=== PATIENT | female | born 1945 | race Caucasian/White ===

== ENCOUNTER → 2017-01-12 | Outpatient (CLI) | payer OTHER ==
[~2017-01-12] MED LIST: ASPEC81 PO; LPT20 PO; LPT40 PO; MECL1TAB42 PO; OXYC1TAB3 PO; PLV75 PO; TRIA37.5 PO; WARF2TAB PO
--- NOTE | 2017-01-12 10:10 | DIAGNOSTIC IMAGING REPORT ---
RIGHT KNEE 3 VIEWS CLINICAL HISTORY: RIGHT KNEE PAIN Right pain COMPARISON: 01/14/2016 DISCUSSION: Post total right knee arthroplasty. Prosthetic appears be good position. Good contact between prosthetic and underlying bone. Degenerative change of all major joint compartments left knee. There is no evidence for soft tissue swelling. IMPRESSION: Unremarkable postoperative change right knee. Significant degenerative change all major joint compartments left knee. Electronically signed by: Alejo Fields M.D. 01/12/2017 10:09 AM Dictated Date/Time: 01/12/2017 10:08 AM
== END | disposition home or self-care (01) ==
LOC: C.RDSM 10:42
PROVIDERS: ATTEND Physical Medicine & Rehabilitation Sports Medicine
DX: Z09 Encounter for follow-up examination after completed treatment for conditions other than malignant neoplasm (principal)

== ENCOUNTER → 2017-02-27 | Outpatient (CLI) | payer OTHER ==
--- NOTE | 2017-02-27 14:58 | MAMMOGRAPHY REPORT ---
BILATERAL DIGITAL SCREENING MAMMOGRAM WITH CAD: 02/27/2017 CLINICAL HISTORY: Routine screening. Patient has no complaints. TECHNIQUE: Current study was also evaluated with a Computer Aided Detection (CAD) system. Bilatera l CC and MLO views were obtained. COMPARISON: Comparison is made to exams dated: 02/26/2016 mammogram, 02/22/2015 mammogram - [facility], 02/22/2015 mammogram, 02/12/2012 mammogram, 02/15/2013 mammogram, and 10/05/2009 ma mmogram. BREAST COMPOSITION: There are scattered areas of fibroglandular density in both breasts. FINDINGS: No suspicious masses, calcifications, or areas of architectural distortion are noted in e ither breast. There has been no significant interval change compared to prior exams. Small cluster of benign-appearing calcifications in the right 12:00 breast is not significantly changed. IMPRESSION: ACR BI-RADS CATEGORY 2: BENIGN There is no mammographic evidence of malignancy. A 1 year screening mammogram is recommended. The p atient will receive written notification of the results. Approximately 10% of breast cancers are not detected with mammography. A negative mammographic repor t should not delay biopsy if a clinically suggestive mass is present. Olamide Merrill M.D. /:02/27/2017 09:36:08 Power Builder Developer: Shalini GIVENS)(Chet), [facility] letter sent: Normal 1/2 BI-RADS Code: ACR BI-RADS Category 2: Benign
== END | disposition home or self-care (01) ==
LOC: C.MAMM 09:07
PROVIDERS: ATTEND Specialist
DX: Z12.31 Encounter for screening mammogram for malignant neoplasm of breast (principal)

== ENCOUNTER 2017-04-19 11:19 | Inpatient (IN) | payer OTHER ==
[~2017-04-19] VITALS: Ht 167.6 cm; Wt 78.6 kg
[~2017-04-19 11:19] MED LIST changes: -ASPEC81 PO; -LPT20 PO; -LPT40 PO; -MECL1TAB42 PO; -PLV75 PO; -TRIA37.5 PO
[2017-04-19] MEDS ORDERED: MECL1TAB42 PO (11:35)
[2017-04-19] MEDS ORDERED: TRIA37.5 PO (11:35)
[2017-04-19 12:25] LABS: BASO % 0.3 %; BASO ABS # 0.03 K/uL (0-0.2); COMPLETE YES; EOS % 0.8 %; HEMATOCRIT 45.7 % (37-47); IG% 0.2 %; LYMPH % 20.6 %; LYMPH ABS # 2.31 K/uL (1.2-3.4); MEAN CELL VOLUME 87.5 fL (80-100); MEAN CORPUSCULAR HEMOGLOBIN 30.1 pg (25-34); MEAN CORPUSCULAR HGB CONC 34.4 g/dl (32-36); MEAN PLATELET VOLUME 10.7 fL (7.4-10.4); MONO % 7.6 %; NEUT % 70.5 %; PLATELET COUNT 498 K/uL (130-400); RED BLOOD COUNT 5.22 M/uL (4.2-5.4); WHITE BLOOD COUNT 11.24 K/uL (4.8-10.8)
--- NOTE | 2017-04-19 12:25 | EMERGENCY ROOM VISIT NOTE ---
History Report prepared by Kodi: Albino Loyd Under the Supervision of: Dr. Sherita De Leon D.O. First contact with patient: 11:51 Chief Complaint: DIZZY Stated Complaint: 2 FALLS, NUMBNESS & TINGLING L SIDE,SLURRED SPEECH Nursing Triage Summary: triage note: Pt reports "i think i have had a couple mini strokes." pt reports "this morning my lips and my right arm and right leg went numb, they don't feel numb now." pt reports dizziness started three weeks ago and continues today. pt reports she has never been dx with mini strokes in the past. History of Present Illness The patient is a 72 year old female who presents to the Emergency Room with complaints of constant dizziness that began three weeks ago. At this time, she was experiencing this dizziness with vomiting. She went to an emergency room in [place], and they told her to go to an ENT doctor if the vertigo persisted. It did, so she went to one. They believed she has Mnire's disease and placed her onto a water pill. She is currently having occasional ringing in her ears. She also states that over the past three days, she has thought she had 3 episodes of mini strokes. She describes these episodes as lip, left arm, and left leg numbness. This lasted for about 30 minutes. She had weakness and diaphoresis at the time, and fell on occasion. She did not lose consciousness at that time as well. She denies any headache, vomiting, fevers, chills, upper respiratory symptoms, or pedal edema. She does not take Aspirin. She denies any past medical history. She does not have a family history of strokes. Source of History: patient Onset: 3 weeks Position: other (global) Symptom Intensity: mild Quality: other (Dizziness) Timing: constant Associated Symptoms: + nausea, No LOC, No fevers, No chills, No headache, No diaphoresis, No sorethroat, No cough, No vomiting, No weakness, No numbness Review of Systems See HPI for pertinent positives & negatives. A total of 10 systems reviewed and were otherwise negative. Past Medical & Surgical Medical Problems: (1) Dizzy spells (2) TIA (transient ischemic attack) Family History Patient reports no known family medical history. Social History Smoking Status: Never Smoker Smokeless Tobacco Use: No Drug Use: none Occupation Status: retired Current/Historical Medications Scheduled Meclizine Hcl (Meclizine Hcl), 25 MG PO Q8H Triamterene/Hctz (Dyazide 37.5MG/25MG), 1 TAB PO BID Allergies Coded Allergies: Tramadol (Verified Adverse Reaction, Severe, STOMACH SICKNESS, 04/19/17) Shrimp (Verified Adverse Reaction, Intermediate, stomach cramps, 04/19/17) Uncoded Allergies: cat gut suture (Allergy, Intermediate, red and painful, 09/08/13) Physical Exam Vital Signs Date Time Temp Pulse Resp B/P (MAP) Pulse Ox O2 Delivery O2 Flow Rate FiO2 04/19/17 15:10 91 20 136/75 94 04/19/17 14:57 136/75 97 04/19/17 14:31 147/66 04/19/17 14:01 129/69 04/19/17 14:00 106 13 98 04/19/17 13:31 127/67 04/19/17 13:01 123/77 04/19/17 13:00 72 134/60 96 Room Air 102 127/82 112 123/77 04/19/17 13:00 103 13 127/82 04/19/17 12:59 134/60 04/19/17 12:48 138/61 04/19/17 12:31 137/88 04/19/17 12:18 96 04/19/17 12:01 152/75 04/19/17 11:24 36.6 108 18 134/76 96 Room Air Physical Exam GENERAL: alert, well appearing, well nourished, no distress, non-toxic EYE EXAM: normal conjunctiva, PERRL and EOM's grossly intact OROPHARYNX: no exudate, no erythema, lips, buccal mucosa, and tongue normal and mucous membranes are moist NECK: supple, no nuchal rigidity, no adenopathy, non-tender LUNGS: Clear to auscultation. Normal chest wall mechanics HEART: no murmurs, S1 normal and S2 normal ABDOMEN: abdomen soft, non-tender, normo-active bowel sounds, no masses, no rebound or guarding. BACK: Back is symmetrical on inspection and there is no deformity, no midline tenderness, no CVA tenderness. SKIN: no rashes and no bruising UPPER EXTREMITIES: upper extremities are grossly normal. LOWER EXTREMITIES: No pitting edema. NEURO EXAM: Normal sensorium, cranial nerves II-XII grossly intact, normal speech, no gross weakness of arms, no gross weakness of legs. No drift. Finger to nose intact on right. Difficulty with finger to nose on left. Gross sensation intact. NIH stroke score 0 Medical Decision & Procedures ER Provider Diagnostic Interpretation: Radiology results have been interpreted by the radiologist and reviewed by me. HEAD CT NONCONTRAST CT DOSE: 537.48 mGy.cm HISTORY: Dizziness. Headache. TECHNIQUE: Multiaxial CT images of the head were performed without the use of intravenous contrast. Automated exposure control was utilized for this study. Comparison: None. Findings: The paranasal sinuses and mastoid air cells are clear. The calvarium and skull base are intact. There is no mass, hematoma, midline shift, acute infarct. White matter hypodensity is nonspecific but suggestive of microvascular ischemic change. The ventricles and sulci are within normal limits. Impression: No acute intracranial abnormality. Scattered periventricular white matter hypodensities likely represent microvascular ischemic change. Electronically signed by: King Michel M.D. 04/19/2017 12:57 PM Dictated Date/Time: 04/19/2017 12:47 PM Laboratory Results 04/19/17 11:45 Red Blood Count 5.22, Mean Corpuscular Volume 87.5, Mean Corpuscular Hemoglobin 30.1, Mean Corpuscular Hemoglobin Concent 34.4, Mean Platelet Volume 10.7, Neutrophils (%) (Auto) 70.5, Lymphocytes (%) (Auto) 20.6, Monocytes (%) (Auto) 7.6, Eosinophils (%) (Auto) 0.8, Basophils (%) (Auto) 0.3, Neutrophils # (Auto) 7.94, Lymphocytes # (Auto) 2.31, Monocytes # (Auto) 0.85, Eosinophils # (Auto) 0.09, Basophils # (Auto) 0.03 04/19/17 11:45 Test 04/19/17 11:45 04/19/17 13:05 White Blood Count 11.24 K/uL (4.8-10.8) Red Blood Count 5.22 M/uL (4.2-5.4) Hemoglobin 15.7 g/dL (12.0-16.0) Hematocrit 45.7 % (37-47) Mean Corpuscular Volume 87.5 fL (80-100) Mean Corpuscular Hemoglobin 30.1 pg (25-34) Mean Corpuscular Hemoglobin Concent 34.4 g/dl (32-36) Platelet Count 498 K/uL (130-400) Mean Platelet Volume 10.7 fL (7.4-10.4) Neutrophils (%) (Auto) 70.5 % Lymphocytes (%) (Auto) 20.6 % Monocytes (%) (Auto) 7.6 % Eosinophils (%) (Auto) 0.8 % Basophils (%) (Auto) 0.3 % Neutrophils # (Auto) 7.94 K/uL (1.4-6.5) Lymphocytes # (Auto) 2.31 K/uL (1.2-3.4) Monocytes # (Auto) 0.85 K/uL (0.11-0.59) Eosinophils # (Auto) 0.09 K/uL (0-0.5) Basophils # (Auto) 0.03 K/uL (0-0.2) RDW Standard Deviation 41.1 fL (36.4-46.3) RDW Coefficient of Variation 12.9 % (11.5-14.5) Immature Granulocyte % (Auto) 0.2 % Immature Granulocyte # (Auto) 0.02 K/uL (0.00-0.02) Anion Gap 11.0 mmol/L (3-11) Est Creatinine Clear Calc Drug Dose 73.4 ml/min Estimated GFR () 95.4 Estimated GFR (Non- 82.3 BUN/Creatinine Ratio 27.8 (10-20) Calcium Level 9.3 mg/dl (8.5-10.1) Magnesium Level 2.5 mg/dl (1.8-2.4) Total Bilirubin 0.7 mg/dl (0.2-1) Aspartate Amino Transf (AST/SGOT) 23 U/L (15-37) Alanine Aminotransferase (ALT/SGPT) 38 U/L (12-78) Alkaline Phosphatase 154 U/L (45-117) Troponin I < 0.015 ng/ml (0-0.045) Total Protein 8.7 gm/dl (6.4-8.2) Albumin 4.0 gm/dl (3.4-5.0) Globulin 4.7 gm/dl (2.5-4.0) Albumin/Globulin Ratio 0.9 (0.9-2) Thyroid Stimulating Hormone (TSH) 2.310 uIu/ml (0.300-4.500) Urine Color YELLOW Urine Appearance CLEAR (CLEAR) Urine pH 7.0 (4.5-7.5) Urine Specific Adah 1.010 (1.000-1.030) Urine Protein NEG (NEG) Urine Glucose (UA) NEG (NEG) Urine Ketones NEG (NEG) Urine Occult Blood NEG (NEG) Urine Nitrite NEG (NEG) Urine Bilirubin NEG (NEG) Urine Urobilinogen NEG (NEG) Urine Leukocyte Esterase NEG (NEG) Laboratory results per my review. Medications Administered Medications (Trade) Dose Ordered Sig/Patricia Route Start Time Stop Time Status Last Admin Dose Admin Aspirin (Ecotrin Tab) 325 mg NOW STAT PO 04/19/17 14:19 04/19/17 14:20 DC 04/19/17 15:06 325 MG ECG Indication: other (Dizziness) Rate (beats per minute): 97 Rhythm: sinus rhythm Findings: no acute ischemic change, no ectopy, other (Normal axis, normal intervals) ED Course 1151: The patient was evaluated in room C3. A complete history and physical exam was performed. 1400: I updated the patient at this time. She informed me that she has a heaviness in her head and would like to have the lights turned off. I updated her on her results and treatment plan. She is in agreement with further management as an inpatient. 1416: Upon reevaluation, the patient is resting. I discussed the findings and the treatment plan with the patient. She expresses agreement and understanding. I spoke with Dr. Lizbeth Lara of the [facility]. She will be evaluated for further management. 1438: I reassessed the patient at this time. She had another episode of numbness /tingling on her left side. When I arrived her symptoms had resolved. She is now at baseline. This lasted for about 5 minutes. Medical Decision Differential diagnosis includes etiologies such as benign positional vertigo, dehydration, hypovolemia, anemia, tumor, infection, hypoglycemia, electrolyte abnormalities, cardiac sources, intracerebral event, toxicologic, neurologic, as well as others were entertained. Medication Reconciliation: I attest that I have personally reviewed the patient' s current medication list. Blood pressure screening: Patient was found to have an elevated blood pressure and was referred to their primary doctor for recheck and further treatment. Unclear etiology of symptoms, patient low risk for stroke, however risk factors include patient's age and known high cholesterol is reported by her. Patient states her family doctor and never started her on any cluster medication because her "good cholesterol was very good". Patient with no other significant family history, no recent trauma or illness. Concern for possible TIA, but concern also for 3 weeks of persistent dizziness and atypical headaches. CT head negative here, however feel patient needs additional evaluation including likely additional neuro imaging. Patient with stable vital signs here, no evidence of occult infectious etiology, doubt cardiac etiology, no obvious abnormality noted on ENT exam at bedside. Doubt dissection. Patient admitted 5 discussion with the hospitalist for additional evaluation and treatment. They agreed with administration of aspirin given consideration of TIA/CVA, and they will order MRI/MRA at this time and place additional orders. Consults Time Called: 1400 Consulting Physician[facility] Returned Call: [phone] They will be evaluating the patient for further management and care. Impression Primary Impression: Dizziness Additional Impressions: Paresthesias Headache Scribe Attestation The scribe's documentation has been prepared under my direction and personally reviewed by me in its entirety. I confirm that the note above accurately reflects all work, treatment, procedures, and medical decision making performed by me. Departure Information Dispostion Being Evaluated By Hospitalist Referrals Koki Alejandra M.D. (PCP) Patient Instructions My [facility] Stroke History Time Last Known Well Is well currently, but presented symptoms once a day for the last two days. Stroke t-PA Criteria Reviewed Does NOT meet criteria for t-PA Reason t-PA Not Given Treatment not indicated Strict Exclusion Criteria Normal neurologic examination Problem Qualifiers Additional Impressions: Headache Headache type: unspecified Headache chronicity pattern: episodic headache Intractability: not intractable Qualified Codes: R51 - Headache
[2017-04-19 12:35] LABS: ALT/SGPT 38 U/L (12-78); AST/SGOT 23 U/L (15-37); BLOOD UREA NITROGEN 20 mg/dl (7-18); BUN/CREATININE RATIO 27.8 (10-20); CALCIUM 9.3 mg/dl (8.5-10.1); CARBON DIOXIDE 23 mmol/L (21-32); CHLORIDE 103 mmol/L (98-107); CREATININE 0.73 mg/dl (0.60-1.20); GLUCOSE 98 mg/dl (70-99); MAGNESIUM 2.5 mg/dl (1.8-2.4); POTASSIUM 4.1 mmol/L (3.5-5.1); SODIUM 137 mmol/L (136-145)
[2017-04-19 12:46] LABS: ALB/GLOB RATIO 0.9 (0.9-2); ALKALINE PHOSPHATASE 154 U/L (45-117)
--- NOTE | 2017-04-19 12:59 | DIAGNOSTIC IMAGING REPORT ---
HEAD CT NONCONTRAST CT DOSE: 537.48 mGy.cm HISTORY: Dizziness. Headache. TECHNIQUE: Multiaxial CT images of the head were performed without the use of intravenous contrast. Automated exposure control was utilized for this study. Comparison: None. Findings: The paranasal sinuses and mastoid air cells are clear. The calvarium and skull base are intact. There is no mass, hematoma, midline shift, acute infarct. White matter hypodensity is nonspecific but suggestive of microvascular ischemic change. The ventricles and sulci are within normal limits. Impression: No acute intracranial abnormality. Scattered periventricular white matter hypodensities likely represent microvascular ischemic change. Electronically signed by: King Michel M.D. 04/19/2017 12:57 PM Dictated Date/Time: 04/19/2017 12:47 PM
[2017-04-19 13:20] LABS: URINE APPEARANCE CLEAR (CLEAR); URINE BILIRUBIN NEG (NEG); URINE COLOR YELLOW; URINE NITRITE NEG (NEG); UROBILINOGEN NEG (NEG); ZZUR CULT IF INDIC CLEAN CATCH NO
[2017-04-19 13:27] LABS: MANUAL MICROSCOPIC REQUIRED? NO; REVIEW REQ? NO
[2017-04-19] MEDS ORDERED: ASPIRIN 325 MG ECTAB PO STA (14:19)
[2017-04-19] MEDS ORDERED: ONDANSETRON INJ 2 MG/ML 2 ML VIAL IV PRN (14:30)
[2017-04-19] MEDS ORDERED: ACETAMINOPHEN 325 MG TAB PO PRN (14:30)
[2017-04-19] MEDS ORDERED: ZOLPIDEM TARTRATE 5 MG TAB PO PRN (14:30)
[2017-04-19] MEDS ORDERED: ALUMINUM/MAGNESIUM/SIMETH (MAALOX MAX) 30 ML UDC PO PRN (14:30)
[2017-04-19] MEDS ORDERED: MAGNESIUM HYDROXIDE SUSP 30 ML UDC PO PRN (14:30)
[2017-04-19] MEDS ORDERED: MECLIZINE HCL 25 MG TAB PO SCH (14:30)
[2017-04-19] MEDS ORDERED: POLYETHYLENE (MIRALAX) 17 GM PACK PO PRN (14:30)
[2017-04-19] MEDS ORDERED: PHARMACIST DISCHARGE MED REC CONSULT PRN (14:30)
[2017-04-19] MEDS ORDERED: SODIUM CHLORIDE 0.9% 1000ML 1,000 ML IV SCH (14:30)
[2017-04-19] MEDS ORDERED: SODIUM CHLORIDE 0.9% 1000ML 1,000 ML IV STA (14:43)
[2017-04-19] MEDS ORDERED: IV FLUIDS COMPLETED PRN (14:45)
[2017-04-19] MEDS ORDERED: GADAVIST IV PRN (15:30)
--- NOTE | 2017-04-19 16:01 | DIAGNOSTIC IMAGING REPORT ---
Brain MRA HISTORY: Left-sided numbness and tingling. Stroke - Attention to [place] [facility] [place] TECHNIQUE: 3-D [id number] MRA of the brain was performed without contrast. COMPARISON STUDY: None. FINDINGS: Hypoplastic distal right vertebral artery. However, the distal vertebral arteries appear patent. There is a 5 mm segment of moderate to severe narrowing within the mid basilar artery. The bilateral intracranial internal carotid arteries are widely patent. The bilateral ACAs, MCAs, furnace attendant show no significant stenosis, occlusion, or aneurysm. Of note, the distal bilateral furnace attendant are suboptimally evaluated due to the motion artifact. IMPRESSION: 1. A 5 mm segment of moderate to severe narrowing within the mid basilar artery. 2. No significant stenosis, occlusion, or aneurysm seen within the bilateral ACAs, MCAs, ACAs. Electronically signed by: King Michel M.D. 04/19/2017 3:59 PM Dictated Date/Time: 04/19/2017 3:55 PM
--- NOTE | 2017-04-19 16:15 | DIAGNOSTIC IMAGING REPORT ---
NECK MRA HISTORY: Left-sided numbness. Stroke TECHNIQUE: Ibfr-ib-bfddag and gadolinium-enhanced MRA of the neck was performed both before and after the intravenous administration of contrast. All measurements were calculated based on NASCET criteria. COMPARISON STUDY: None. FINDINGS: The aortic arch and proximal great vessels are widely patent. There is no significant stenosis, occlusion, or dissection identified within the bilateral common carotid, internal carotid, or vertebral arteries. Hypoplastic right vertebral artery. IMPRESSION: No significant stenosis, occlusion, or dissection identified within the carotid or vertebral arteries. Electronically signed by: King Michel M.D. 04/19/2017 4:14 PM Dictated Date/Time: 04/19/2017 4:11 PM
--- NOTE | 2017-04-19 16:25 | DIAGNOSTIC IMAGING REPORT ---
Brain MRI WITH AND WITHOUT CONTRAST HISTORY: Left-sided tingling. Stroke TECHNIQUE: Multiplanar multisequence MRI of the brain was performed both before and after the intravenous administration of contrast. COMPARISON STUDY: Head CT 04/19/2017. FINDINGS: No areas restricted diffusion to suggest acute infarction. The midline structures are intact. The midline structures are intact. The paranasal sinuses and mastoid cells are clear. There are few tiny punctate lacunar infarcts seen within the right brainstem. The ventricles are normal in size. No hematoma or midline shift. Within the left occipital lobe best seen on coronal sequences image 22 there is a 2 cm peripheral wedge-shaped area of T2 hyperintensity. This demonstrates associated enhancement and an area of encephalomalacia. These findings favor a subacute infarct. Multiple scattered foci of T2 hyperintensity seen within the periventricular and subcortical white matter of the supratentorial brain. These are nonspecific but favor moderate microvascular ischemic change. Best seen on coronal T1 postcontrast image 14 there is a 7 mm focal blush of contrast within the mid billie. IMPRESSION: 1. Peripheral 2 cm area of increased T2 signal within the left occipital lobe. This demonstrates patchy enhancement and an area of encephalomalacia. Therefore, this most likely represents a subacute infarct. Follow-up brain MRI in one month is recommended to ensure resolution of these findings. 2. No acute infarct identified. 3. A 7 mm blush of contrast enhancement within the mid billie favors a capillary telangectasia. This can also be reassessed on follow-up examination. Electronically signed by: King Michel M.D. 04/19/2017 4:23 PM Dictated Date/Time: 04/19/2017 4:14 PM
--- NOTE | 2017-04-19 16:36 | DIAGNOSTIC IMAGING REPORT ---
BILATERAL CAROTID DOPPLER STUDY HISTORY: Left-sided tingling. Stroke COMPARISON: Neck MRA 04/19/2017. TECHNIQUE: Real-time, grayscale, and color Doppler sonography of the carotid arteries was performed. Imaging reviewed in the transverse and longitudinal planes. All measurements were calculated based on NASCET criteria. FINDINGS: Antegrade flow is seen in the bilateral vertebral arteries. The brachial pressures are hemodynamically similar. The peak systolic velocity within the right ICA is 93 cm/s. The right systolic ratio is 1.2. The peak systolic velocity within the left ICA is 71 cm/s. The left systolic ratio is 0.8. IMPRESSION: No hemodynamically significant stenosis seen within the carotid arteries. Electronically signed by: King Michel M.D. 04/19/2017 4:34 PM Dictated Date/Time: 04/19/2017 4:34 PM
[2017-04-19 17:04] VITALS: BP 152/62; PULSE 90; TEMP 36.6; O2SAT 96; Ht 167.6 cm; Wt 78.6 kg
[2017-04-19 17:13] LABS: PARTIAL THROMBOPLASTIN RATIO 1.1; PROTHROMBIN TIME (PATIENT) 10.4 SECONDS (9.0-12.0)
--- NOTE | 2017-04-19 17:20 | History and Physical ---
History & Physical Date & Time of Service: Apr 19, 2017 at 17:20 Chief Complaint: Dizzy Spells, Tia (Transient Ischemic Attack) Primary Care Physician: Lauren Beal D.O. History of Present Illness Source: patient This is a 72 yo F -healthy at baseline- was not on any medications Her past medical hx includes -hx of Uterine Ca s/p Hysterectomy in 2005 , hx of Migraine , DJD of cervical spine Pt noticed feeling Dizzy spell with any movement of her head has persisted nausea and vomiting with her symptoms was seen at [facility] ED , CT head was unraveling, pt was discharged with Meclizine PRN and asked to see an ENT doctor if her symptoms persists She saw ENT specialist -was thought to have Mnire's disease -was prescribes HCTZ pt did not had any improvement of Dizzy spell for the last 2-3 days started to experience intermittent numbness on left arm , leg and around her mouth no headache , no visual symptoms came to ED to evaluation In the ED her vitals showed orthostatic change Supine 134/60; sitting 127/83 / standing 123/77 CT head was unremarkable MRI of brain : 1. Peripheral 2 cm area of increased T2 signal within the left occipital lobe. This demonstrates patchy enhancement and an area of encephalomalacia. pt will be admitted to Telemetry or further stroke work up Family History Patient reports no known family medical history. Social History Smoking Status: Never Smoker Smokeless Tobacco Use: No Drug Use: none Occupational Status: retired Immunizations History of Influenza Vaccine: Yes Influenza Vaccine Date: Aug 22, 2013 History of Tetanus Vaccine?: Unknown Tetanus Immunization Date: Sep 08, 2013 History of Pneumococcal: Yes Pneumococcal Date: Sep 11, 2011 History of Hepatitis B Vaccine: Unknown Allergies Coded Allergies: Tramadol (Verified Adverse Reaction, Severe, STOMACH SICKNESS, 04/19/17) Shrimp (Verified Adverse Reaction, Intermediate, stomach cramps, 04/19/17) Uncoded Allergies: cat gut suture (Allergy, Intermediate, red and painful, 09/08/13) Home Medications Scheduled Meclizine Hcl (Meclizine Hcl), 25 MG PO Q8H Triamterene/Hctz (Dyazide 37.5MG/25MG), 1 TAB PO BID Review of Systems Constitutional: + weakness, + fatigue ENT: + hearing loss, + tinnitus Respiratory: No cough, No sputum, No wheezing, No shortness of breath, No dyspnea on exertion, No dyspnea at rest, No hemoptysis, No problem reported Cardiovascular: No chest pain, No orthopnea, No PND, No edema, No claudication , No palpitations, No problem reported Abdomen: + nausea, + vomiting Genitourinary - Female: No dysuria, No urinary frequency, No urinary urgency, No urinary incontinence, No urinary retention, No hematuria, No dysmenorrhea, No menorrhagia, No metrorrhagia, No rash, No vaginal bleeding, No vaginal discharge, No vaginal itching, No vulvodynia, No , No problem reported Neurologic: + weakness, + numbness/tingling, + vertigo Physical Exam Vital Signs Date Time Temp Pulse Resp B/P (MAP) Pulse Ox O2 Delivery O2 Flow Rate FiO2 04/19/17 17:04 36.6 90 18 152/62 96 Room Air 04/19/17 15:10 91 20 136/75 94 04/19/17 14:57 136/75 97 04/19/17 14:31 147/66 04/19/17 14:01 129/69 04/19/17 14:00 106 13 98 04/19/17 13:31 127/67 04/19/17 13:01 123/77 04/19/17 13:00 72 134/60 96 Room Air 102 127/82 112 123/77 04/19/17 13:00 103 13 127/82 04/19/17 12:59 134/60 04/19/17 12:48 138/61 04/19/17 12:31 137/88 04/19/17 12:18 96 04/19/17 12:01 152/75 04/19/17 11:24 36.6 108 18 134/76 96 Room Air General Appearance: no apparent distress (appears younger than stated age ) Head: normocephalic, atraumatic Eyes: normal inspection, PERRL, EOMI, sclerae normal ENT: normal ENT inspection Neck: no JVD, no carotid bruits Respiratory/Chest: chest non-tender, lungs clear, no respiratory distress Cardiovascular: regular rate, rhythm, no edema, + tachycardia Abdomen/GI: normal bowel sounds, non tender, soft Back: no CVA tenderness Extremities/Musculoskelatal: normal inspection, no calf tenderness, no pedal edema Neurologic/Psych: no motor/sensory deficits, alert, oriented x 3 Diagnostics Laboratory Results Results Past 24 Hours Test 04/19/17 11:45 04/19/17 13:05 Range/Units White Blood Count 11.24 4.8-10.8 K/uL Red Blood Count 5.22 4.2-5.4 M/uL Hemoglobin 15.7 12.0-16.0 g/dL Hematocrit 45.7 37-47 % Mean Corpuscular Volume 87.5 80-100 fL Mean Corpuscular Hemoglobin 30.1 25-34 pg Mean Corpuscular Hemoglobin Concent 34.4 32-36 g/dl Platelet Count 498 130-400 K/uL Mean Platelet Volume 10.7 7.4-10.4 fL Neutrophils (%) (Auto) 70.5 % Lymphocytes (%) (Auto) 20.6 % Monocytes (%) (Auto) 7.6 % Eosinophils (%) (Auto) 0.8 % Basophils (%) (Auto) 0.3 % Neutrophils # (Auto) 7.94 1.4-6.5 K/uL Lymphocytes # (Auto) 2.31 1.2-3.4 K/uL Monocytes # (Auto) 0.85 0.11-0.59 K/uL Eosinophils # (Auto) 0.09 0-0.5 K/uL Basophils # (Auto) 0.03 0-0.2 K/uL RDW Standard Deviation 41.1 36.4-46.3 fL RDW Coefficient of Variation 12.9 11.5-14.5 % Immature Granulocyte % (Auto) 0.2 % Immature Granulocyte # (Auto) 0.02 0.00-0.02 K/uL Prothrombin Time 10.4 9.0-12.0 SECONDS Prothromb Time International Ratio 1.0 0.9-1.1 Activated Partial Thromboplast Time 29.2 21.0-31.0 SECONDS Partial Thromboplastin Ratio 1.1 Sodium Level 137 136-145 mmol/L Potassium Level 4.1 3.5-5.1 mmol/L Chloride Level 103 98-107 mmol/L Carbon Dioxide Level 23 21-32 mmol/L Anion Gap 11.0 3-11 mmol/L Blood Urea Nitrogen 20 7-18 mg/dl Creatinine 0.73 0.60-1.20 mg/dl Est Creatinine Clear Calc Drug Dose 73.4 ml/min Estimated GFR () 95.4 Estimated GFR (Non- 82.3 BUN/Creatinine Ratio 27.8 10-20 Random Glucose 98 70-99 mg/dl Calcium Level 9.3 8.5-10.1 mg/dl Magnesium Level 2.5 1.8-2.4 mg/dl Total Bilirubin 0.7 0.2-1 mg/dl Aspartate Amino Transf (AST/SGOT) 23 15-37 U/L Alanine Aminotransferase (ALT/SGPT) 38 12-78 U/L Alkaline Phosphatase 154 45-117 U/L Troponin I < 0.015 0-0.045 ng/ml Total Protein 8.7 6.4-8.2 gm/dl Albumin 4.0 3.4-5.0 gm/dl Globulin 4.7 2.5-4.0 gm/dl Albumin/Globulin Ratio 0.9 0.9-2 Thyroid Stimulating Hormone (TSH) 2.310 0.300-4.500 uIu/ml Urine Color YELLOW Urine Appearance CLEAR CLEAR Urine pH 7.0 4.5-7.5 Urine Specific Tavernier 1.010 1.000-1.030 Urine Protein NEG NEG Urine Glucose (UA) NEG NEG Urine Ketones NEG NEG Urine Occult Blood NEG NEG Urine Nitrite NEG NEG Urine Bilirubin NEG NEG Urine Urobilinogen NEG NEG Urine Leukocyte Esterase NEG NEG Diagnostic Radiology MRI BRAIN : IMPRESSION: 1. Peripheral 2 cm area of increased T2 signal within the left occipital lobe. This demonstrates patchy enhancement and an area of encephalomalacia. Therefore, this most likely represents a subacute infarct. Follow-up brain MRI in one month is recommended to ensure resolution of these findings. 2. No acute infarct identified. 3. A 7 mm blush of contrast enhancement within the mid billie favors a capillary telangiectasia. This can also be reassessed on follow-up examination. MRA BRAIN : 1. A 5 mm segment of moderate to severe narrowing within the mid basilar artery. 2. No significant stenosis, occlusion, or aneurysm seen within the bilateral ACAs, MCAs, ACAs. NECK MRA: IMPRESSION: No significant stenosis, occlusion, or dissection identified within the carotid or vertebral arteries CT HEAD : Impression: No acute intracranial abnormality. Scattered periventricular white matter hypodensities likely represent microvascular ischemic change. CAROTID USG : IMPRESSION: No hemodynamically significant stenosis seen within the carotid arteries. Impression Assessment and Plan ACUTE /SUBACUTE CVA : presented with 2-3 days of intermittent numbness on left side MRI scan shows possible acute /sub acute CVA on left occipital area pt given Aspirin in ED will add Plavix started on Lipitor fasting lipid panel . Hb A1 c ordered for risk stratification allow permissive HTN carotid Doppler shows now stenosis monitor in tele to asses cardiac arrhythmia; ECHO eval hypercoagulable work up added to am labs Neurology eval requested DIZZY SPELL : not sure it is related to Acute CVA vs peripheral dizzy spell due to inner ear PT ordered for Tamara D/C Meclizine as it making pt drowsy without any reducing symptom Neuro eval requested HYPOTENSION /TACHYCARDIA : possible due to Vol depletion pt recently started on on HCTZ for possible Menieres disease ordered for IVF monitor FULL CODE DVT PROPHYLAXIS : sub q heparin DISPOSITION: Independent in her ADL's expected to be discharged home when medically stable Medicine follow up with Dr Beal Level of Care Telemetry Advanced Directives Existing Living Will: No Existing Power of Stock Pitcher: No Resuscitation Status FULL RESUSCITATION VTE Prophylaxis VTE Risk Assessment Done? Y/N: Yes Risk Level: Low Given or contraindicated: Unfractionated heparin SQ Additional Copies To Lauren Beal D.O. Mateer, John, M.D. (MEDICINE)
[2017-04-19] MEDS ORDERED: CLOPIDOGREL BISULFATE 75 MG TAB PO ONE (18:00)
[2017-04-19] MEDS ORDERED: LORAZEPAM 0.5 MG TAB PO PRN (18:30)
[2017-04-19 19:59] VITALS: BP 129/74; PULSE 86; TEMP 37; O2SAT 94
[2017-04-19 20:00] VITALS: O2SAT 94
[2017-04-19] MEDS ORDERED: TRIAMTERENE/HCTZ 37.5/25MG CAP PO SCH (21:00)
[2017-04-19] MEDS: ATORVASTATIN 20 MG TAB PO SCH (21:09)
[2017-04-19] MEDS: HEPARIN SOD 5000 UNIT/0.5 ML CARP SQ SCH (21:56)
[2017-04-20] VITALS (12 sets, daily range): BP systolic 116–150; BP diastolic 53–79; PULSE 76–97; TEMP 36.6–37.3; O2SAT 94–96
[2017-04-20] MEDS: IV FLUIDS COMPLETED PRN ×2 (04:32→21:18)
[2017-04-20] MEDS: HEPARIN SOD 5000 UNIT/0.5 ML CARP SQ SCH ×3 (06:26→21:20)
[2017-04-20 06:47] LABS: BASO % 0.4 %; BASO ABS # 0.04 K/uL (0-0.2); COMPLETE YES; HEMATOCRIT 45.9 % (37-47); IG% 0.3 %; LYMPH % 22.9 %; LYMPH ABS # 2.18 K/uL (1.2-3.4); MEAN CELL VOLUME 87.6 fL (80-100); MEAN CORPUSCULAR HEMOGLOBIN 27.9 pg (25-34); MEAN CORPUSCULAR HGB CONC 31.8 g/dl (32-36); MEAN PLATELET VOLUME 10.5 fL (7.4-10.4); MONO % 7.9 %; NEUT % 67.5 %; PLATELET COUNT 463 K/uL (130-400); RED BLOOD COUNT 5.24 M/uL (4.2-5.4); WHITE BLOOD COUNT 9.54 K/uL (4.8-10.8)
[2017-04-20 07:24] LABS: BUN/CREATININE RATIO 35.6 (10-20); CALCIUM 8.7 mg/dl (8.5-10.1); CREATININE 0.76 mg/dl (0.60-1.20); POTASSIUM 3.9 mmol/L (3.5-5.1)
[2017-04-20 07:27] LABS: CHOLESTEROL/HDL RATIO 3.1
[2017-04-20] MEDS: CLOPIDOGREL BISULFATE 75 MG TAB PO SCH (08:02)
[2017-04-20] MEDS: ASPIRIN 81 MG ECTAB PO SCH (08:03)
[2017-04-20] MEDS ORDERED: PHARMACIST DISCHARGE MED REC CONSULT PRN (08:15)
[2017-04-20 08:24] LABS: ESTIMATED AVERAGE GLUCOSE 117 mg/dl; HA1C FLAG Normal (Normal)
[2017-04-20] MEDS ORDERED: SODIUM CHLORIDE 0.9% 1000ML 1,000 ML IV SCH (09:30)
[2017-04-20 10:53] LABS: FIBRINOGEN* 427 mg/dl (184-400)
--- NOTE | 2017-04-20 12:05 | ECHOCARDIOGRAM REPORT ---
*NOTICE TO RECEIVING LIBERTARIAN AGENCY This information is strictly Confidential and protected under [place] law. [place] law prohibits you from making any further disclosure of this information unless further disclosure is expressly permitted by the written consent of the person to whom it pertains or is authorized by law. A general authorization for the release of medical or other information is not sufficient for this purpose. Hospital accepts no responsibility if the information is made available to any other person, INCLUDING THE PATIENT. Interpretation Summary * Name: SHANTELL DONNELLY Study Date: 04/20/2017 08:59 AM BP: 127/64 mmHg * Patient Location: [facility] HR: 76 * : 1945 (M/d/yyyy) Gender: Female Height: 66 in * Age: 72 yrs Ethnicity: CA Weight: 171 lb * Ordering Physician: Lizbeth Lara * Performed By: Nupur Niño * * Reason For Study: CEREBRAL ISCHEMIA/ EMBOLUS * BSA: 1.9 m2 * -- Conclusions -- * The left ventricular cavity is small. * There is moderate concentric left ventricular hypertrophy. * Left ventricular systolic function is normal. * The left ventricular wall motion is normal. * Ejection Fraction = 65-70%. * Grade I diastolic dysfunction, (abnormal relaxation pattern). * The interatrial septum is intact with no evidence for an atrial septal defect. * Injection of contrast documented no interatrial shunt. Procedure Details * A complete two-dimensional transthoracic echocardiogram was performed (2D, M-mode, Doppler and color flow Doppler). * A saline contrast injection was performed to assess for cardiac shunting. * The injection was performed through an intravenous line in the right arm. * The attending nurse who injected the saline contrast was BENNIE VOGT RN. * A total of 20 cc of agitated saline was given. Left Ventricle * The left ventricular cavity is small. * There is moderate concentric left ventricular hypertrophy. * Ejection Fraction = 65-70%. * Left ventricular systolic function is normal. * The left ventricular wall motion is normal. Right Ventricle * The right ventricle is normal in size and function. Atria * The left atrial size is normal. * Right atrial size is normal. * The interatrial septum is intact with no evidence for an atrial septal defect. * Injection of contrast documented no interatrial shunt. Mitral Valve * The mitral valve anatomy is normal. * There is no mitral valve stenosis. * There is no mitral regurgitation noted. Tricuspid Valve * The tricuspid valve anatomy is normal. * There is no tricuspid stenosis. * There is trace tricuspid regurgitation. * Doppler findings do not suggest pulmonary hypertension. Aortic Valve * The aortic valve is trileaflet. * Aortic stenosis is absent. * There is no significant aortic regurgitation. Pulmonic Valve * The pulmonary valve is not well seen, but the Doppler examination is normal without significant regurgitation or stenosis. Great Vessels * The aortic root and proximal ascending aorta are normal sized. Pericardium/Pleural * There is no pericardial effusion. Great Vessels * Normal inferior vena cava diameter and respiratory variation suggests normal central venous pressure. Left Ventricular Diastolic Function * Grade I diastolic dysfunction, (abnormal relaxation pattern). MMode 2D Measurements and Calculations IVSd 1.6 cm IVSs 1.9 cm LVIDd 3.3 cm LVIDs 2.1 cm LVPWd 1.2 cm LVPWs 1.6 cm IVS/LVPW 1.3 FS 37.8 % EDV(Teich) 45.0 ml ESV(Teich) 13.9 ml EF(Teich) 69.1 % EDV(cubed) 36.9 ml ESV(cubed) 8.9 ml EF(cubed) 75.9 % % IVS thick 21.5 % % LVPW thick 34.2 % LV mass(C)d 159.0 grams LV mass(C)dI 85.0 grams/m\S\2 LV mass(C)s 139.0 grams LV mass(C)sI 74.3 grams/m\S\2 CO(Teich) 2.7 l/min CI(Teich) 1.4 l/min/m\S\2 SV(Teich) 31.1 ml SI(Teich) 16.6 ml/m\S\2 CO(cubed) 2.4 l/min CI(cubed) 1.3 l/min/m\S\2 SV(cubed) 28.0 ml SI(cubed) 15.0 ml/m\S\2 ACS 1.5 cm LA dimension 2.9 cm asc Aorta Diam 3.3 cm LVOT diam 1.7 cm LVOT area 2.3 cm\S\2 LVAd ap4 22.3 cm\S\2 LVLd ap4 7.2 cm EDV(MOD-sp4) 57.2 ml LVAs ap4 11.2 cm\S\2 LVLs ap4 5.9 cm ESV(MOD-sp4) 18.9 ml EF(MOD-sp4) 67.0 % LVAd ap2 16.0 cm\S\2 LVLd ap2 6.5 cm EDV(MOD-sp2) 33.2 ml LVAs ap2 8.4 cm\S\2 LVLs ap2 5.2 cm ESV(MOD-sp2) 11.6 ml EF(MOD-sp2) 65.1 % CO(MOD-sp4) 3.3 l/min CI(MOD-sp4) 1.8 l/min/m\S\2 SV(MOD-sp4) 38.3 ml SI(MOD-sp4) 20.5 ml/m\S\2 CO(MOD-sp2) 1.9 l/min CI(MOD-sp2) 1.0 l/min/m\S\2 SV(MOD-sp2) 21.6 ml SI(MOD-sp2) 11.5 ml/m\S\2 Doppler Measurements and Calculations MV E max yosi 52.4 cm/sec MV A max yosi 73.7 cm/sec MV E/A 0.71 MV dec time 0.23 sec Ao V2 max 118.7 cm/sec Ao max PG 5.6 mmHg Ao max PG (full) 0.26 mmHg RAMESH(V,A) 2.2 cm\S\2 RAMESH(V,D) 2.2 cm\S\2 LV V1 max PG 5.4 mmHg LV V1 max 115.9 cm/sec PA V2 max 71.8 cm/sec PA max PG 2.1 mmHg
--- NOTE | 2017-04-20 14:33 | Neurology Consultation ---
Neurology Consultation Date of Consultation: Apr 20, 2017. Attending Physician: Lizbeth Lara M.D. Primary Care Physician: Lauren Beal D.O. Reason for Consultation: dizzy spell, numbness, r/o TIA History of Present Illness Source: patient Tessa is a 72 year old female who has a PMH -Uterine Ca s/p Hysterectomy in 2005 , hx of Migraine headaches when she was younger for approximately 6 years. , DJD of cervical spine had several episodes of vertigo which she described as room spinning and tinnitus the worst one lasting 20 minutes. She also fell 4 x when she was walking she would drift to one side or the other and just fall over. she states she has no hearing loss. She states she went to the [facility] and they did the Tamara maneuver but could not reproduce the symptoms. she was given Meclizine and was referred to ENT who stated she had ear canal debris and thought she had Meniere's disease and gave her a diuretic. She then presented to [facility] with dizziness and vomiting and was found to be dehydrated. she also had an episode of numbness and tingling in her right arm and leg which lasted about 20 minutes. she denies any headaches with the symptoms. She was given IV fluids and today she states there is no vertigo. She has been up walking in the room with no difficulties today. denies CP, SOB, abdominal pain, weakness, numbness tingling, N, V, bowel or bladder issues swallowing difficulties, tinnitus. Past Medical/Surgical History Medical Problems: (1) Dizziness Status: Acute (2) Headache Status: Acute (3) Paresthesias Status: Acute Family History Mother: coronary artery disease Grandfather: mental health disorder Social History Smoking Status: Never smoker Smokeless Tobacco Use: No Drug Use: none Occupation Status: retired Allergies Coded Allergies: Tramadol (Verified Adverse Reaction, Severe, STOMACH SICKNESS, 04/19/17) Shrimp (Verified Adverse Reaction, Intermediate, stomach cramps, 04/19/17) Uncoded Allergies: cat gut suture (Allergy, Intermediate, red and painful, 09/08/13) Current Inpatient Medications Current Inpatient Medications Medications (Trade) Dose Ordered Sig/Patricia Route Start Time Stop Time Status Last Admin Dose Admin Aspirin (Ecotrin Tab) 81 mg QAM PO 04/20/17 09:00 05/20/17 08:59 04/20/17 08:03 81 MG Miscellaneous Information (Pharmacist Discharge Med Rec Consult) 1 ea UD PRN N/A 04/19/17 14:30 05/19/17 14:29 Heparin Sodium (Porcine) (Heparin Sq 5000 Unit/0.5ml) 5,000 unit Q8 SQ 04/19/17 22:00 05/19/17 21:59 04/20/17 14:05 5,000 UNIT Acetaminophen (Tylenol Tab) 650 mg Q4H PRN PO 04/19/17 14:30 05/19/17 14:29 Al Hydrox/Mg Hydrox/Simethicone (Maalox Max Susp) 15 ml Q4H PRN PO 04/19/17 14:30 05/19/17 14:29 Magnesium Hydroxide (Milk Of Magnesia Susp) 30 ml Q12H PRN PO 04/19/17 14:30 05/19/17 14:29 Zolpidem Tartrate (Ambien Tab) 5 mg HSZ PRN PO 04/19/17 14:30 05/19/17 14:29 Ondansetron HCl (Zofran Inj) 4 mg Q6H PRN IV 04/19/17 14:30 05/19/17 14:29 Polyethylene (Miralax Powder Packet) 17 gm DAILY PRN PO 04/19/17 14:30 05/19/17 14:29 Gadobutrol (Gadavist) 7.8 mmol UD PRN IV 04/19/17 15:30 04/23/17 15:29 Clopidogrel Bisulfate (plAVix TAB) 75 mg QAM PO 04/20/17 09:00 05/20/17 08:59 04/20/17 08:02 75 MG Atorvastatin Calcium (Lipitor Tab) 20 mg HS PO 04/19/17 21:00 05/19/17 20:59 04/19/17 21:09 20 MG Miscellaneous (Iv Fluids Completed) 1 ea PRN PRN N/A 04/19/17 17:45 04/19/18 17:44 04/20/17 04:32 1 EA Lorazepam (Ativan Tab) 0.5 mg Q8H PRN PO 04/19/17 18:30 05/19/17 18:29 Sodium Chloride 1,000 ml @ 100 mls/hr Q10H IV 04/20/17 09:30 04/20/17 19:29 04/20/17 09:58 100 MLS/HR Physical Exam Vital Signs (Past 24 Hrs): Date Time Temp Pulse Resp B/P (MAP) Pulse Ox O2 Delivery O2 Flow Rate FiO2 04/20/17 12:00 96 Room Air 04/20/17 11:56 36.7 85 21 149/66 (93) 96 Room Air 04/20/17 08:19 37.3 83 17 125/71 (89) 94 Room Air 91 121/65 (83) 97 116/74 (88) 04/20/17 08:00 94 Room Air 04/20/17 04:00 94 Room Air 04/20/17 04:00 36.8 76 16 127/64 (85) 95 Room Air 04/20/17 00:28 37.0 79 16 119/53 (75) 95 Room Air 04/20/17 00:01 94 Room Air 04/19/17 20:00 94 Room Air 04/19/17 19:59 37.0 86 16 129/74 (92) 94 Room Air 04/19/17 17:04 36.6 90 18 152/62 96 Room Air 04/19/17 15:10 91 20 136/75 94 04/19/17 14:57 136/75 97 04/19/17 14:31 147/66 Physical Exam: Constitutional: appearance nourished, healthy and normal Ears, Nose, Mouth and Throat: mucous membranes moist, no injection and skin normal, eyes normal Cardiovascular: normal S-1 and S-2 and regular rate and rhythm Respiratory: clear to auscultation (CTA) and no rales, rhonchi or wheeze Musculoskeletal: no peripheral edema and good distal pulses Skin: no stigmata of neurocutaneous disease noted and normal and intact Eyes: extraocular muscles intact (EOMI) and pupils equal, round and reactive to light (PERRL), good vascular pulsations, disc flat NEUROLOGIC EXAMINATION: Mental status: Alert and interactive Oriented to full date and location Oriented to person Speech fluent with no evidence of aphasia Cranial Nerves smile eye brow raise symmetric, tongue midline Reflexes: Deep tendon reflexes were symmetrical and graded 2/5. Plantar responses were flexor. Sensory: no deficit to vibration cool touch, GT proprioception intact bilaterally Coordination: Romberg absent Gait/Stance: Posture sitting up in bed able to move freely to side of bed and dangle legs Motor: Negative for pronator drift of out stretched arms with eyes closed. Strength: biceps triceps deltoids hand strategic marketing leader 5/5 bilaterally hip flex patellar flex ext, plantar flex ext bilaterally intact Laboratory Results Past 24 Hours: 04/20/17 06:35 Red Blood Count 5.24, Mean Corpuscular Volume 87.6, Mean Corpuscular Hemoglobin 27.9, Mean Corpuscular Hemoglobin Concent 31.8, Mean Platelet Volume 10.5, Neutrophils (%) (Auto) 67.5, Lymphocytes (%) (Auto) 22.9, Monocytes (%) (Auto) 7.9, Eosinophils (%) (Auto) 1.0, Basophils (%) (Auto) 0.4, Neutrophils # (Auto) 6.44, Lymphocytes # (Auto) 2.18, Monocytes # (Auto) 0.75, Eosinophils # (Auto) 0.10, Basophils # (Auto) 0.04 04/20/17 06:35 Test 04/20/17 06:35 04/20/17 10:16 White Blood Count 9.54 K/uL (4.8-10.8) Red Blood Count 5.24 M/uL (4.2-5.4) Hemoglobin 14.6 g/dL (12.0-16.0) Hematocrit 45.9 % (37-47) Mean Corpuscular Volume 87.6 fL (80-100) Mean Corpuscular Hemoglobin 27.9 pg (25-34) Mean Corpuscular Hemoglobin Concent 31.8 g/dl (32-36) Platelet Count 463 K/uL (130-400) Mean Platelet Volume 10.5 fL (7.4-10.4) Neutrophils (%) (Auto) 67.5 % Lymphocytes (%) (Auto) 22.9 % Monocytes (%) (Auto) 7.9 % Eosinophils (%) (Auto) 1.0 % Basophils (%) (Auto) 0.4 % Neutrophils # (Auto) 6.44 K/uL (1.4-6.5) Lymphocytes # (Auto) 2.18 K/uL (1.2-3.4) Monocytes # (Auto) 0.75 K/uL (0.11-0.59) Eosinophils # (Auto) 0.10 K/uL (0-0.5) Basophils # (Auto) 0.04 K/uL (0-0.2) RDW Standard Deviation 41.7 fL (36.4-46.3) RDW Coefficient of Variation 13.0 % (11.5-14.5) Immature Granulocyte % (Auto) 0.3 % Immature Granulocyte # (Auto) 0.03 K/uL (0.00-0.02) Anion Gap 9.0 mmol/L (3-11) Est Creatinine Clear Calc Drug Dose 70.2 ml/min Estimated GFR () 90.8 Estimated GFR (Non- 78.4 BUN/Creatinine Ratio 35.6 (10-20) Estimated Average Glucose 117 mg/dl Hemoglobin A1c 5.7 % (4.5-5.6) Calcium Level 8.7 mg/dl (8.5-10.1) Triglycerides Level 91 mg/dl (0-150) Cholesterol Level 232 mg/dl (0-200) HDL Cholesterol 76 mg/dl LDL Cholesterol, Calculated 138 mg/dl VLDL Cholesterol, Calculated 18 mg/dl Cholesterol/HDL Ratio 3.1 Fibrinogen 427 mg/dl (184-400) D-Dimer 280 ug/L FEU (0-500) Imaging MRI with and without contrast- Peripheral 2 cm area of increased T2 signal within the left occipital lobe. This demonstrates patchy enhancement and an area of encephalomalacia. Therefore, this most likely represents a subacute infarct. Follow-up brain MRI in one month is recommended to ensure resolution of these findings. No acute infarct identified. . A 7 mm blush of contrast enhancement within the mid billie favors a capillary telangectasia. This can also be reassessed on follow-up examination. carotid doppler- No hemodynamically significant stenosis seen within the carotid arteries. MRA brain - A 5 mm segment of moderate to severe narrowing within the mid basilar artery.2. No significant stenosis, occlusion, or aneurysm seen within the bilateral ACAs, MCAs, ACAs. MRA neck- No significant stenosis, occlusion, or dissection identified within the carotid or vertebral arteries. TTE- The left ventricular cavity is small. There is moderate concentric left ventricular hypertrophy. Left ventricular systolic function is normal. The left ventricular wall motion is normal. Ejection Fraction = 65-70%. Grade I diastolic dysfunction, (abnormal relaxation pattern). The interatrial septum is intact with no evidence for an atrial septal defect. Impression 72 year old female s/p dizzy, vertigo, right sided numbness tingling- now resolved Plan 1. resolving symptoms 2. plavix 75 mg and aspirin 81 mg daily started 3. DL with LDL <70 statin added 4 optimize HTN control but currently should allow permissive hypertension 5. orthostatic completed not significant change 6. MRA head basilar narrowing would be better evaluated with CTA head/neck- shrimp on allergy list however she had abdominal pain with shrimp prior to gallbladder surgery, no rash or breathing issues 7. PT/OT for discharge needs 8. cardiology no atrial septal defect I have seen and discussed above patient with Dr Anjelica Banuelos, neurology PT seen an examined, positional vertigo with nonpulsatile tinnitus w/o other neurol sx several weeks ago. Started on diuretic last week, 1 episode of L arm l let numbness +/- dyarthria, diplopia for 30 min on Thursday, then fall on Thursday without other sx. MRI L STATION ENGINEER infarct, midbasilar stenosis. Agree with asa , plavix, permissive hypertension as pt may be prone to more sx with low bp. CTA head and neck for confirmation of stenosis ( pt not allergic to CT dye or shrimp), echo, tele, statin. Exam is notable only for mildly wide-based gait with mil difficulty with tandem. Neg provocative head manuevers. Francisco Burrows MD
[2017-04-20] MEDS ORDERED: OPTIRAY 320 IV PRN (17:00)
[2017-04-20] MEDS ORDERED: LPT20 PO (18:40)
[2017-04-20] MEDS ORDERED: ASPEC81 PO (18:40)
[2017-04-20] MEDS ORDERED: PLV75 PO (18:40)
--- NOTE | 2017-04-20 18:43 | Discharge Instructions ---
Discharge Instructions Date of Service Apr 20, 2017. Admission Reason for Admission: Dizzy Spells, Tia (Transient Ischemic Attack) Discharge Discharge Diagnosis / Problem: ACUTE CVA Discharge Goals Goal(s): Decrease discomfort, Improve disease control, Diagnostic testing Activity Recommendations Activity Limitations: resume your previous activity . Instructions / Follow-Up Instructions / Follow-Up HOSPITAL FOLLOW UP : 04/27/2017 @ 8:[address] Lauren Beal, Internal Medicine [facility] NEUROLOGY FOLLOW UP DR HARDING IN 2-3 WEEKS REPEAT MRI OF BRAIN WITH OUT CONTRAST IN 1 MONTHS Risk Factors for Stroke: You can reduce your chances of stroke by working with your medical provider to adopt a healthy lifestyle. Some specific ways to lower your chance of stroke are: * If you are a smoker, now is the time to stop smoking cigarettes * If you are diabetic, improve the control of your blood sugars * Avoid excessive amounts of alcohol * Control high blood pressure * Lose weight if you are overweight * Be sure to lead an active lifestyle * Eat a healthy diet low in salt, cholesterol and fat You should know about other risk factors for stroke that you are unable to control. These include: * Age 55 years or older * Male gender * Certain racial groups: , or / * Family History of Stroke, Mini stroke or Heart Attack * Sickle Cell Disease Follow Up: It is important for you to keep your follow up appointments with your medical provider. Current Hospital Diet Patient's current hospital diet: AHA Diet (Heart Healthy) Discharge Diet Recommended Diet: AHA Diet (Heart Healthy) Pending Studies Studies pending at discharge: yes List of pending studies: MRI OF BRAIN IN A MONTHS Laboratory Results Hemoglobin A1c Test 04/20/17 06:35 Range/Units Estimated Average Glucose 117 mg/dl Hemoglobin A1c 5.7 H 4.5-5.6 % Lipid Panel Test 04/20/17 06:35 Range/Units Triglycerides Level 91 0-150 mg/dl Cholesterol Level 232 H 0-200 mg/dl HDL Cholesterol 76 mg/dl Cholesterol/HDL Ratio 3.1 LDL Cholesterol, Calculated 138 mg/dl Medical Emergencies . Who to Call and When: Medical Emergencies: Call 911 immediately if you experience any of the following warning signs and symptoms of Stroke: * Sudden numbness or weakness of the face, arm or leg, especially on one side of the body * Sudden confusion, trouble speaking or understanding * Sudden trouble seeing in one or both eyes * Sudden trouble walking, dizziness, loss of balance or coordination * Sudden severe headache with no cause Do not delay calling 911 if you experience any warning signs or symptoms of a stroke. Delay in seeking medical attention may affect what treatments can be given to you. . Non-Emergent Contact Non-Emergency issues call your: Primary Care Provider . . "Provider Documentation" section prepared by Lizbteh Lara. . Stroke Core Measures Reason no t-PA for Stroke: Treatment not indicated Reason no antithrom by day 2: Treatment provided - N/A Reason no antithrom at D/C: Treatment provided - N/A Reason no statin at D/C: Treatment provided - N/A Reason no anticoag w/a fib: Treatment not indicated VTE Core Measure Inpt VTE Proph given/why not?: Unfractionated heparin SQ
--- NOTE | 2017-04-20 19:28 | DIAGNOSTIC IMAGING REPORT ---
CT ANGIOGRAPHY HEAD COMBO CT DOSE: 1000.89 mGy.cm CLINICAL HISTORY: Dizziness. Abnormal right scan. TECHNIQUE: Unenhanced images were obtained the brain. CT angiography was then performed in a dynamic helical fashion during intravenous administration 1 through 19 cc Optiray 320. MIP imaging was performed. COMPARISON STUDY: Noncontrast head CT dated 04/19/2017, MRI the brain dated 04/19/2017 MR angiography of the brain dated 04/19/2017 FINDINGS: Unenhanced images reveal no intra or extra-axial mass lesions. There is no CT evidence of acute cortical infarction. There is no midline shift. There is no hydrocephalus. There are patchy white matter hypodensities likely on a small vessel basis. Postcontrast images reveal no pathologically enhancing masses. There are no major intracranial branch occlusions. There are no lesions suspicious for aneurysm. There is no evidence of dural venous sinus thrombosis. There is a 50% diameter narrowing of the mid basilar artery. IMPRESSION: 1. 50% stenosis of the mid basilar artery 2. No evidence of intracranial aneurysm. Electronically signed by: Jack Wallace M.D. 04/20/2017 7:27 PM Dictated Date/Time: 04/20/2017 7:21 PM
--- NOTE | 2017-04-20 19:35 | DIAGNOSTIC IMAGING REPORT ---
CT NECK ANGIO WITH CONTRAST CLINICAL HISTORY: Dizziness. Abnormal MR angiography.. COMPARISON STUDY: MR angiography dated 04/19/2017 TECHNIQUE: CT angiography was performed from the aortic arch to the skull base. MIP imaging was performed. The patient was scanned in a dynamic helical fashion during intravenous administration of 119 cc of [address] DOSE: Technique: CT angiogram of the carotid and vertebral arteries was obtained using intravenous contrast and 3-D reconstruction. NASCET criteria was utilized. Findings: The right carotid revealed no evidence of aneurysm and no evidence of dissection. There is no evidence of hemodynamic significant stenosis. The left carotid revealed no evidence of hemodynamic significant stenosis. There is no evidence of aneurysm. There is no evidence of dissection. Left vertebral artery is dominant. There is a 50% basilar artery stenosis. No dissection is visualized. IMPRESSION: 1. Moderate atheromatous changes. No evidence of hemodynamically significant carotid stenosis 2. Dominant left vertebral artery 3. 50% basilar artery stenosis Electronically signed by: Jack Wallace M.D. 04/20/2017 7:34 PM Dictated Date/Time: 04/20/2017 7:27 PM
[2017-04-20] MEDS: ATORVASTATIN 20 MG TAB PO SCH (21:19)
--- NOTE | 2017-04-20 22:11 | Progress Note ---
Internal Med Progress Note Date of Service: Apr 20, 2017. Provider Documentation: SUBJECTIVE: mentions dizzy spell has much improved no headache no visual symptom no weakness or paresthesia OBJECTIVE: Vital Signs-as noted below Exam: General-no sign of distress Eyes-sclera non icteric ENT-NAD Neck-no JVD Lungs-CTA Heart-regular S1/S2 Abdomen-soft,non tender Extremities-no lower ext edema Neuro-no focal neurological deficit Lab data as noted below. ASSESSMENT & PLAN: ACUTE /SUBACUTE CVA : presented with 2-3 days of intermittent numbness on left side STROKE WORK UP : MRI with and without contrast- Peripheral 2 cm area of increased T2 signal within the left occipital lobe. This demonstrates patchy enhancement and an area of encephalomalacia. Therefore, this most likely represents a subacute infarct. Follow-up brain MRI in one month is recommended to ensure resolution of these findings. No acute infarct identified. . A 7 mm blush of contrast enhancement within the mid billie favors a capillary telangectasia. This can also be reassessed on follow-up examination. carotid doppler- No hemodynamically significant stenosis seen within the carotid arteries. MRA brain - A 5 mm segment of moderate to severe narrowing within the mid basilar artery.2. No significant stenosis, occlusion, or aneurysm seen within the bilateral ACAs, MCAs, ACAs. MRA neck- No significant stenosis, occlusion, or dissection identified within the carotid or vertebral arteries. TTE- The left ventricular cavity is small. There is moderate concentric left ventricular hypertrophy. Left ventricular systolic function is normal. The left ventricular wall motion is normal. Ejection Fraction = 65-70%. Grade I diastolic dysfunction, (abnormal relaxation pattern). The interatrial septum is intact with no evidence for an atrial septal defect. pt will be continued with Aspirin , Plavix , Lipitor goal LDL < 70 ( fasting lipid panel shows LDL 138 ) tele monitor shows no cardiac arrhythmia; hypercoagulable work up ordered Neurology eval requested -appreciate input CTA angiogram of brain/neck shows : 50 % narrowing of basilar artery -pt given information regarding progression of atherosclerotic disease -importance of continue on Aspirin ,Plavix , statin keep LDL < 70 to prevent future CVA DIZZY SPELL : possible due to acute CVA , worsened with dehydration due to diuretic -HCTZ symptom has markedly improved after IV hydration HYPOTENSION /TACHYCARDIA : possible due to Vol depletion improved after IV hydration pt recently started on on HCTZ for possible Menieres disease HCTZ D/veronica FULL CODE DVT PROPHYLAXIS : sub q heparin DISPOSITION: Independent in her ADL's expected to be discharged home tomorrow Medicine follow up with Dr Beal will need Neurology follow up as out pt Vital Signs: Date Time Temp Pulse Resp B/P (MAP) Pulse Ox O2 Delivery O2 Flow Rate FiO2 04/20/17 20:02 36.9 81 18 150/79 (102) 96 Room Air 04/20/17 16:46 36.6 81 18 138/62 (87) 94 Room Air 83 129/68 (88) 91 150/70 (96) 04/20/17 16:00 94 Room Air 04/20/17 12:00 96 Room Air 04/20/17 11:56 36.7 85 21 149/66 (93) 96 Room Air 04/20/17 08:19 37.3 83 17 125/71 (89) 94 Room Air 91 121/65 (83) 97 116/74 (88) 04/20/17 08:00 94 Room Air 04/20/17 04:00 94 Room Air 04/20/17 04:00 36.8 76 16 127/64 (85) 95 Room Air 04/20/17 00:28 37.0 79 16 119/53 (75) 95 Room Air 04/20/17 00:01 94 Room Air Lab Results: Results Past 24 Hours Test 04/20/17 06:35 04/20/17 10:16 Range/Units White Blood Count 9.54 4.8-10.8 K/uL Red Blood Count 5.24 4.2-5.4 M/uL Hemoglobin 14.6 12.0-16.0 g/dL Hematocrit 45.9 37-47 % Mean Corpuscular Volume 87.6 80-100 fL Mean Corpuscular Hemoglobin 27.9 25-34 pg Mean Corpuscular Hemoglobin Concent 31.8 32-36 g/dl Platelet Count 463 130-400 K/uL Mean Platelet Volume 10.5 7.4-10.4 fL Neutrophils (%) (Auto) 67.5 % Lymphocytes (%) (Auto) 22.9 % Monocytes (%) (Auto) 7.9 % Eosinophils (%) (Auto) 1.0 % Basophils (%) (Auto) 0.4 % Neutrophils # (Auto) 6.44 1.4-6.5 K/uL Lymphocytes # (Auto) 2.18 1.2-3.4 K/uL Monocytes # (Auto) 0.75 0.11-0.59 K/uL Eosinophils # (Auto) 0.10 0-0.5 K/uL Basophils # (Auto) 0.04 0-0.2 K/uL RDW Standard Deviation 41.7 36.4-46.3 fL RDW Coefficient of Variation 13.0 11.5-14.5 % Immature Granulocyte % (Auto) 0.3 % Immature Granulocyte # (Auto) 0.03 0.00-0.02 K/uL Sodium Level 139 136-145 mmol/L Potassium Level 3.9 3.5-5.1 mmol/L Chloride Level 106 98-107 mmol/L Carbon Dioxide Level 24 21-32 mmol/L Anion Gap 9.0 3-11 mmol/L Blood Urea Nitrogen 27 7-18 mg/dl Creatinine 0.76 0.60-1.20 mg/dl Est Creatinine Clear Calc Drug Dose 70.2 ml/min Estimated GFR () 90.8 Estimated GFR (Non- 78.4 BUN/Creatinine Ratio 35.6 10-20 Random Glucose 102 70-99 mg/dl Estimated Average Glucose 117 mg/dl Hemoglobin A1c 5.7 4.5-5.6 % Calcium Level 8.7 8.5-10.1 mg/dl Triglycerides Level 91 0-150 mg/dl Cholesterol Level 232 0-200 mg/dl HDL Cholesterol 76 mg/dl LDL Cholesterol, Calculated 138 mg/dl VLDL Cholesterol, Calculated 18 mg/dl Cholesterol/HDL Ratio 3.1 Fibrinogen 427 184-400 mg/dl D-Dimer 280 0-500 ug/L FEU
[2017-04-21] VITALS: BP_SYST 108; BP_SYST 127; BP_SYST 139; BP_DIAS 64; BP_DIAS 72; BP_DIAS 81; PULSE 88; PULSE 93; PULSE 97; TEMP 36.9; O2SAT 96
[2017-04-21 00:01] VITALS: O2SAT 96
[2017-04-21 04:00] VITALS: BP 135/67; PULSE 62; TEMP 37; O2SAT 96
[2017-04-21] MEDS: HEPARIN SOD 5000 UNIT/0.5 ML CARP SQ SCH (06:14)
[2017-04-21 07:44] VITALS: BP 135/62; PULSE 81; TEMP 36.9; O2SAT 94
[2017-04-21] MEDS: ASPIRIN 81 MG ECTAB PO SCH (08:05)
[2017-04-21] MEDS: CLOPIDOGREL BISULFATE 75 MG TAB PO SCH (08:05)
[2017-04-21] MEDS ORDERED: LPT40 PO (09:32)
--- NOTE | 2017-04-21 09:44 | Progress Note ---
Internal Med Progress Note Date of Service: Apr 21, 2017. Provider Documentation: SUBJECTIVE: Seen and examined at bedside. States feeling well today. Denies weakness, numbness, dizziness. No new complaints. She states she feels back to baseline. OBJECTIVE: Vital Signs-as noted below Physical Exam: Vitals signs as noted above General Appearance:Moderately built and nourished, no apparent distress Head: normocephalic, Atraumatic Eyes: normal inspection, EOMI, PERRL Neck: supple, no Trachea midline Respiratory/Chest: Normal breath sounds, CTA Cardiovascular: S1, S2, No murmur Abdomen/GI:Soft, Non tender, Bowel sounds present Extremities/Musculoskelatal:normal inspection, no edema Neurologic/Psych:grossly no focal neurological deficits Skin: normal color, warm Lab data as noted below. ASSESSMENT & PLAN: ACUTE /SUBACUTE CVA : Patient presented with intermittent numbness on left side MRI Brain: Peripheral 2 cm area of increased T2 signal within the left occipital lobe. This demonstrates patchy enhancement and an area of encephalomalacia. Therefore, this most likely represents a subacute infarct. Carotid doppler- No hemodynamically significant stenosis seen within the carotid arteries. MRA brain: A 5 mm segment of moderate to severe narrowing within the mid basilar artery. No significant stenosis, occlusion, or aneurysm seen within the bilateral ACAs, MCAs, ACAs. MRA neck: No significant stenosis, occlusion, or dissection identified within the carotid or vertebral arteries. ECHO: EF:65-70%, Grade I diastolic dysfunction. The interatrial septum is intact with no evidence for an atrial septal defect. Continue Aspirin , Plavix , Lipitor hypercoagulable work up pending Appreciate Neurology input DIZZY SPELL : Likely secondary to acute CVA, worsened with dehydration due to diuretic -HCTZ symptom has markedly improved after IV hydration HYPOTENSION /TACHYCARDIA : possible due to Vol depletion improved with IV hydration Patient was recently started on on HCTZ for possible Menieres disease HCTZ D/veronica CODE STATUS: FULL CODE DVT PROPHYLAXIS : Heparin SQ DISPOSITION: Plan to discharge home today Medicine follow up with Dr Beal Need Neurology follow up as out pt Repeat MRI brain in 1 month Vital Signs: Date Time Temp Pulse Resp B/P (MAP) Pulse Ox O2 Delivery O2 Flow Rate FiO2 04/21/17 07:44 36.9 81 18 135/62 (86) 94 Nasal Cannula 04/21/17 04:00 37.0 62 17 135/67 (89) 96 Room Air 04/21/17 04:00 96 Room Air 04/21/17 00:01 96 Room Air 04/21/17 00:00 36.9 88 20 127/72 (90) 96 Room Air 97 108/81 (90) 93 139/64 (89) 04/20/17 20:02 36.9 81 18 150/79 (102) 96 Room Air 04/20/17 20:00 96 Room Air 04/20/17 16:46 36.6 81 18 138/62 (87) 94 Room Air 83 129/68 (88) 91 150/70 (96) 04/20/17 16:00 94 Room Air 04/20/17 12:00 96 Room Air 04/20/17 11:56 36.7 85 21 149/66 (93) 96 Room Air Lab Results: Results Past 24 Hours Test 04/20/17 10:16 Range/Units Fibrinogen 427 184-400 mg/dl D-Dimer 280 0-500 ug/L FEU
--- NOTE | 2017-04-21 09:58 | Discharge Summary ---
Discharge Summary Date of Service Apr 21, 2017. Discharge Summary Admission Date: Apr 19, 2017 at 17:35 Discharge Date: Apr 21, 2017 Discharge Disposition: Home Principal Diagnosis: ACUTE CVA Procedures: CT Head: No acute intracranial abnormality. Scattered periventricular white matter hypodensities likely represent microvascular ischemic change. Neck MRA: No significant stenosis, occlusion, or dissection identified within the carotid or vertebral arteries. Head MRA: 1. A 5 mm segment of moderate to severe narrowing within the mid basilar artery. 2. No significant stenosis, occlusion, or aneurysm seen within the bilateral ACAs, MCAs, ACAs. Carotid Doppler: No hemodynamically significant stenosis seen within the carotid arteries. Brain MRI: 1. Peripheral 2 cm area of increased T2 signal within the left occipital lobe. This demonstrates patchy enhancement and an area of encephalomalacia. Therefore, this most likely represents a subacute infarct. Follow-up brain MRI in one month is recommended to ensure resolution of these findings. 2. No acute infarct identified. 3. A 7 mm blush of contrast enhancement within the mid billie favors a capillary telangectasia. This can also be reassessed on follow-up examination. CTA Head: 1. 50% stenosis of the mid basilar artery 2. No evidence of intracranial aneurysm. CTA Neck: 1. Moderate atheromatous changes. No evidence of hemodynamically significant carotid stenosis 2. Dominant left vertebral artery 3. 50% basilar artery stenosis ECHO: * The left ventricular cavity is small. * There is moderate concentric left ventricular hypertrophy. * Left ventricular systolic function is normal. * The left ventricular wall motion is normal. * Ejection Fraction = 65-70%. * Grade I diastolic dysfunction, (abnormal relaxation pattern). * The interatrial septum is intact with no evidence for an atrial septal defect. * Injection of contrast documented no interatrial shunt. Consultations: Neurology Pending Studies/Follow-Up: HOSPITAL FOLLOW UP : 04/27/2017 @ 8:[address] Lauren Beal, Internal Medicine [facility] NEUROLOGY FOLLOW UP DR HARDING IN 2-3 WEEKS REPEAT MRI OF BRAIN WITH OUT CONTRAST IN 1 MONTHS Medication Reconciliation New Medications: Aspirin (Aspirin EC Low Dose) 81 Mg Ectab 81 MG PO QAM for 30 Days, #30 TABS 2 Refills Atorvastatin (Atorvastatin Calcium) 40 Mg Tab 40 MG PO HS for 30 Days, #30 TAB 2 Refills Clopidogrel Bisulfate (Clopidogrel) 75 Mg Tab 75 MG PO QAM for 30 Days, #30 TAB 2 Refills Discontinued Medications: Meclizine Hcl (Meclizine Hcl) 25 Mg Tab 25 MG PO Q8H Triamterene/Hctz (Dyazide 37.5MG/25MG) Cap 1 TAB PO BID Admission Information HPI (per Admitting provider): This is a 72 yo F -healthy at baseline- was not on any medications Her past medical hx includes -hx of Uterine Ca s/p Hysterectomy in 2005 , hx of Migraine , DJD of cervical spine Pt noticed feeling Dizzy spell with any movement of her head has persisted nausea and vomiting with her symptoms was seen at [facility] ED , CT head was unraveling, pt was discharged with Meclizine PRN and asked to see an ENT doctor if her symptoms persists She saw ENT specialist -was thought to have Mnire's disease -was prescribes HCTZ pt did not had any improvement of Dizzy spell for the last 2-3 days started to experience intermittent numbness on left arm , leg and around her mouth no headache , no visual symptoms came to ED to evaluation In the ED her vitals showed orthostatic change Supine 134/60; sitting 127/83 / standing 123/77 CT head was unremarkable MRI of brain : 1. Peripheral 2 cm area of increased T2 signal within the left occipital lobe. This demonstrates patchy enhancement and an area of encephalomalacia. pt will be admitted to Telemetry or further stroke work up Physical Exam (per Admitting): General Appearance: no apparent distress (appears younger than stated age ) Head: normocephalic, atraumatic Eyes: normal inspection, PERRL, EOMI, sclerae normal ENT: normal ENT inspection Neck: no JVD, no carotid bruits Respiratory/Chest: chest non-tender, lungs clear, no respiratory distress Cardiovascular: regular rate, rhythm, no edema, + tachycardia Abdomen/GI: normal bowel sounds, non tender, soft Back: no CVA tenderness Extremities/Musculoskelatal: normal inspection, no calf tenderness, no pedal edema Neurologic/Psych: no motor/sensory deficits, alert, oriented x 3 Hospital Course ACUTE /SUBACUTE CVA : Patient presented with intermittent numbness on left side MRI Brain: Peripheral 2 cm area of increased T2 signal within the left occipital lobe. This demonstrates patchy enhancement and an area of encephalomalacia. Therefore, this most likely represents a subacute infarct. Carotid doppler- No hemodynamically significant stenosis seen within the carotid arteries. MRA brain: A 5 mm segment of moderate to severe narrowing within the mid basilar artery. No significant stenosis, occlusion, or aneurysm seen within the bilateral ACAs, MCAs, ACAs. MRA neck: No significant stenosis, occlusion, or dissection identified within the carotid or vertebral arteries. ECHO: EF:65-70%, Grade I diastolic dysfunction. The interatrial septum is intact with no evidence for an atrial septal defect. Continue Aspirin , Plavix , Lipitor hypercoagulable work up pending Appreciate Neurology input DIZZY SPELL : Likely secondary to acute CVA, worsened with dehydration due to diuretic -HCTZ symptom has markedly improved after IV hydration HYPOTENSION /TACHYCARDIA : possible due to Vol depletion improved with IV hydration Patient was recently started on on HCTZ for possible Menieres disease HCTZ D/veronica CODE STATUS: FULL CODE DVT PROPHYLAXIS : Heparin SQ DISPOSITION: Plan to discharge home today Medicine follow up with Dr Beal Need Neurology follow up as out pt Repeat MRI brain in 1 month Total time spent on discharge = 34 minutes This includes examination of the patient, discharge planning, medication reconciliation, and communication with other providers. Discharge Instructions Discharge Instructions Date of Service Apr 20, 2017. Admission Reason for Admission: Dizzy Spells, Tia (Transient Ischemic Attack) Discharge Discharge Diagnosis / Problem: ACUTE CVA Discharge Goals Goal(s): Decrease discomfort, Improve disease control, Diagnostic testing Activity Recommendations Activity Limitations: resume your previous activity . Instructions / Follow-Up Instructions / Follow-Up HOSPITAL FOLLOW UP : 04/27/2017 @ 8:[address] Lauren Beal, Internal Medicine [facility] NEUROLOGY FOLLOW UP DR HARDING IN 2-3 WEEKS REPEAT MRI OF BRAIN WITH OUT CONTRAST IN 1 MONTHS Risk Factors for Stroke: You can reduce your chances of stroke by working with your medical provider to adopt a healthy lifestyle. Some specific ways to lower your chance of stroke are: * If you are a smoker, now is the time to stop smoking cigarettes * If you are diabetic, improve the control of your blood sugars * Avoid excessive amounts of alcohol * Control high blood pressure * Lose weight if you are overweight * Be sure to lead an active lifestyle * Eat a healthy diet low in salt, cholesterol and fat You should know about other risk factors for stroke that you are unable to control. These include: * Age 55 years or older * Male gender * Certain racial groups: , or / * Family History of Stroke, Mini stroke or Heart Attack * Sickle Cell Disease Follow Up: It is important for you to keep your follow up appointments with your medical provider. Current Hospital Diet Patient's current hospital diet: AHA Diet (Heart Healthy) Discharge Diet Recommended Diet: AHA Diet (Heart Healthy) Pending Studies Studies pending at discharge: yes List of pending studies: MRI OF BRAIN IN A MONTHS Laboratory Results Hemoglobin A1c Test 04/20/17 06:35 Range/Units Estimated Average Glucose 117 mg/dl Hemoglobin A1c 5.7 H 4.5-5.6 % Lipid Panel Test 04/20/17 06:35 Range/Units Triglycerides Level 91 0-150 mg/dl Cholesterol Level 232 H 0-200 mg/dl HDL Cholesterol 76 mg/dl Cholesterol/HDL Ratio 3.1 LDL Cholesterol, Calculated 138 mg/dl Medical Emergencies . Who to Call and When: Medical Emergencies: Call 911 immediately if you experience any of the following warning signs and symptoms of Stroke: * Sudden numbness or weakness of the face, arm or leg, especially on one side of the body * Sudden confusion, trouble speaking or understanding * Sudden trouble seeing in one or both eyes * Sudden trouble walking, dizziness, loss of balance or coordination * Sudden severe headache with no cause Do not delay calling 911 if you experience any warning signs or symptoms of a stroke. Delay in seeking medical attention may affect what treatments can be given to you. . Non-Emergent Contact Non-Emergency issues call your: Primary Care Provider . . "Provider Documentation" section prepared by Lizbeth Lara. . Stroke Core Measures Reason no t-PA for Stroke: Treatment not indicated Reason no antithrom by day 2: Treatment provided - N/A Reason no antithrom at D/C: Treatment provided - N/A Reason no statin at D/C: Treatment provided - N/A Reason no anticoag w/a fib: Treatment not indicated VTE Core Measure Inpt VTE Proph given/why not?: Unfractionated heparin SQ
[2017-04-21 10:25] VITALS: BP 120/63
[2017-04-21 10:27] VITALS: BP 135/62; PULSE 81; TEMP 36.9; O2SAT 94
--- NOTE | 2017-04-21 11:11 | Pharmacy Progress Note ---
Pharmacist Stroke Counseling Date of Service Apr 21, 2017. Scope Pharmacy has been consulted to provide medication discharge counseling for this patient admitted with ischemic stroke/hemorrhagic stroke/ transient ischemic attack as per the Pharmacist Discharge Counseling for Stroke Patients Protocol. Medications on Discharge New Medications: Aspirin (Aspirin EC Low Dose) 81 Mg Ectab 81 MG PO QAM for 30 Days, #30 TABS 2 Refills Atorvastatin (Atorvastatin Calcium) 40 Mg Tab 40 MG PO HS for 30 Days, #30 TAB 2 Refills Clopidogrel Bisulfate (Clopidogrel) 75 Mg Tab 75 MG PO QAM for 30 Days, #30 TAB 2 Refills Discontinued Medications: Meclizine Hcl (Meclizine Hcl) 25 Mg Tab 25 MG PO Q8H Triamterene/Hctz (Dyazide 37.5MG/25MG) Cap 1 TAB PO BID Action The above medications, specifically ones for stroke treatment/prophylaxis, have been reviewed in detail with the patient and/or patient sales representative leather goods(s) prior to discharge. This includes indication, common adverse reactions, drug interactions, and medication administration. Medication counseling has been employed using the teach-back method to ensure understanding. Outcome The patient and/or patient sales representative leather goods(s) have demonstrated understanding of the medications. Please note, they are aware that the pharmacist will call them within 72 hours post-discharge to confirm that the appropriate medications are being taken and answer any further medication related questions the patient might have at that time. Contact information Individual to be contacted: Patient Phone number: [phone] (leave message on answering machine if not home) Best time to call: anytime Additional comments: Patient has follow up with neuro in 3 weeks and plans to see her PCP Thursday, April 27. Patient went from being on no medications to 3 medications so she is hoping to adopt a routine once she gets home. Thank you for allowing pharmacy to be involved in the care of this patient. Please call [phone] or [phone] with any additional questions
[2017-04-21] MEDS ORDERED: ATORVASTATIN 40 MG TAB PO SCH ×2 (21:00)
--- NOTE | 2017-04-23 15:00 | Pharmacy Progress Note ---
Pharmacist Post D/C Phone Note Date of phone call: Apr 23, 2017. Individual with whom pharmacist spoke to: Tessa Rivas [Patient] The following questions were reviewed during the phone call with responses listed below each: Can you tell me the medications that you are currently taking as well as when and how you take each medication? - ASA and Plavix in am with food, Lipitor at bedtime When have you missed any doses of your medications? - none What side effects are you having from your medications? - some back pain but it started before hospital stay. She feels it may be due to the hospital mattress, but will mention it to PCP What questions do you have about your medications? - none What problems are you having obtaining your medications? - none When is your next appointment with your primary care doctor? - PCP Friday 04/27, first appointment available for neurologist ([facility] ) in June Additional comments: - She likes our discharge counseling program-appreciates the information. As per the Pharmacist Discharge Counseling for Stroke Patients Protocol, this phone call has been completed within 72 hours of discharge. Thank you for allowing us to be involved in the care of this patient.
[2017-04-23 22:05] LABS: ANTITHROMBINIII ACTIVITY** 122 % activity (80-120); B2 GLYCOPROTEIN IGA <9 SAU (<=20); B2 GLYCOPROTEIN IGG <9 SGU (<=20); B2 GLYCOPROTEIN IGM <9 SMU (<=20); LUPUS ANTICOAGULANT** TC36573X Negative (Negative); PROTEIN C ACTIVITY** TC 1777X 138 % (70-180); PROTEIN S ACT(FUNCT)**1779X 114 % (60-140)
== END 2017-04-21 11:50 | disposition home or self-care (01) | DRG 66 ==
LOC: C.EDB 11:21 → C.2E 14:20 → ENRESERV 14:55 → OBSVTOIN 17:35
PROVIDERS: ADMIT Hospitalist; ATTEND Internal Medicine
DX: I63.9 Cerebral infarction, unspecified (principal); I95.9 Hypotension, unspecified; R00.0 Tachycardia, unspecified; Z86.73 Personal history of transient ischemic attack (TIA), and cerebral infarction without residual deficits

== ENCOUNTER → 2017-11-05 | Outpatient (CLI) | payer OTHER ==
[~2017-11-05] MED LIST changes: +ASPI-320 PO; +LPT40 PO; +OPTIRAY 320 IV PRN; -OXYC1TAB3 PO; +PLV75 PO; -WARF2TAB PO
--- NOTE | 2017-11-05 15:47 | DIAGNOSTIC IMAGING REPORT ---
ANGIOGRAPHY HEAD COMBO HISTORY: Basilar artery stenosis TECHNIQUE: Multiaxial CT images of the head were performed both before and after the intravenous administration of contrast to evaluate the major cerebral vessels. Maximum intensity projection images were also obtained. A dose lowering technique was utilized adhering to the principles of ALARA. COMPARISON: MRA 04/19/2017. CTA head 04/20/2017 FINDINGS: There is no mass, hematoma, midline shift, or acute infarct. Old focus of encephalomalacia of the left occipital cortex is unchanged. No midline shift. Anterior middle cerebral circulation is unremarkable. The left posterior cerebral is fed exclusively via the right posterior communicator. This is unchanged. Basilar artery continues show proximally 50% narrowing at its mid aspect also unchanged. IMPRESSION: 1. 50% narrowing mid basilar artery unchanged from the prior study. 2. Right posterior cerebral is fed via the right posterior communicator which is considered an anatomic variant. This is unchanged from the prior study. 3. No new or interval finding. The above report was generated using voice recognition software. It may contain grammatical, syntax or spelling errors. Electronically signed by: Alejo Fields M.D. 11/05/2017 3:46 PM Dictated Date/Time: 11/05/2017 3:39 PM
--- NOTE | 2017-11-05 15:53 | DIAGNOSTIC IMAGING REPORT ---
NECK ANGIO WITH CONTRAST CLINICAL HISTORY: 72 years-old Female presenting with BASILAR ARTERY STENOSIS. TECHNIQUE: Multidetector CT angiography of the neck was performed after the administration of intravenous contrast. 3-D volumetric and/or maximum intensity projection (MIP) images were subsequently reconstructed for review. IV contrast: 93 mL of Optiray 320. A dose lowering technique was used consistent with the principles of ALARA (as low as reasonably achievable). Stenosis measurements were based on NASCET-like criteria. COMPARISON: 04/20/2017. CT DOSE (mGy.cm): The estimated cumulative dose is 1013.54 mGy.cm. FINDINGS: Manager Of Information topogram: Unremarkable. Three-vessel aortic arch with atherosclerosis. Patent origins of the branch vessels. Bilateral common carotid arteries patent. Calcified and noncalcified atherosclerotic plaque at the right carotid bulb without significant narrowing of the origin of the right internal carotid artery (less than 25% stenosis). The left internal carotid artery is widely patent throughout. Left dominant vertebral artery. Patent origins and courses of the bilateral vertebral arteries. Both vertebral arteries contribute to the basilar artery, which demonstrates narrowing of the vessel lumen after the takeoff of the left anterior inferior cerebellar artery (luminal diameter 1.6 mm). A larger luminal diameter is noted immediately distal proximal to the takeoffs of the superior cerebellar arteries (2.2 mm). No significant evidence of atherosclerotic plaque as the cause of this apparent stenosis (approximately 25%) the appearance is not significantly changed from prior exam. Venous structures grossly patent allowing for the phase of contrast. Remaining soft tissues of the neck are within normal limits allowing for the phase of contrast. Lung apices grossly clear allowing for motion artifact. Degenerative changes of the spine. IMPRESSION: 1. No hemodynamically significant stenosis of the cervical arteries. 2. Atherosclerosis at the right carotid bulb results in less than 25% stenosis of the origin of the right internal carotid artery. 3. Approximately 25% stenosis of the midportion of the basilar artery immediately after the takeoff of the left anterior inferior cerebellar artery. Please see separately dictated CTA head. Electronically signed by: Ismael Plasencia M.D. 11/05/2017 3:52 PM Dictated Date/Time: 11/05/2017 3:46 PM
== END | disposition home or self-care (01) ==
LOC: C.CTS 14:39
PROVIDERS: ATTEND Psychiatry & Neurology Neurology
DX: I65.1 Occlusion and stenosis of basilar artery (principal)

== ENCOUNTER → 2018-01-11 | Outpatient (CLI) | payer OTHER ==
[~2018-01-11] MED LIST changes: +ASPEC81 PO; -ASPI-320 PO; -OPTIRAY 320 IV PRN
== END | disposition home or self-care (01) ==
LOC: C.RDSM 10:00
PROVIDERS: ATTEND Physical Medicine & Rehabilitation Sports Medicine
DX: M17.0 Bilateral primary osteoarthritis of knee (principal); M25.562 Pain in left knee; Z96.659 Presence of unspecified artificial knee joint

== ENCOUNTER → 2018-03-02 | Outpatient (CLI) | payer OTHER ==
[~2018-03-02] MED LIST changes: -ASPEC81 PO; +ASPI-320 PO
--- NOTE | 2018-03-03 15:44 | MAMMOGRAPHY REPORT ---
BILATERAL DIGITAL SCREENING MAMMOGRAM TOMOSYNTHESIS WITH CAD: 03/02/2018 CLINICAL HISTORY: Routine screening. Patient has no complaints. TECHNIQUE: Breast tomosynthesis in addition to standard 2D mammography was performed. Current study was also evaluated with a Computer Aided Detection (CAD) system. COMPARISON: Comparison is made to exams dated: 02/26/2016 mammogram, 02/27/2017 mammogram, 02/22/2015 m ammogram - [facility], 02/22/2015 mammogram, 06/23/2014 mammogram, and 02/15/2013 mamm ogram. BREAST COMPOSITION: There are scattered areas of fibroglandular density in both breasts. FINDINGS: A grouping of round monomorphic microcalcifications in the 12:00 right breast appears simil ar dating back to 2013, most likely a degenerating fibroadenoma. No new suspicious mass, architectur al distortion or cluster of microcalcifications is seen. IMPRESSION: ACR BI-RADS CATEGORY 1: NEGATIVE There is no mammographic evidence of malignancy. A 1 year screening mammogram is recommended. The pa tient will receive written notification of the results. Approximately 10% of breast cancers are not detected with mammography. A negative mammographic report should not delay biopsy if a clinically suggestive mass is present. Fartun Montes M.D. ay/:03/02/2018 16:50:43 Recycling Manager: Rachael Nuno, [facility] letter sent: Normal 1/2 BI-RADS Code: ACR BI-RADS Category 1: Negative
== END | disposition home or self-care (01) ==
LOC: C.MAMM 09:19
PROVIDERS: ATTEND Specialist
DX: Z12.31 Encounter for screening mammogram for malignant neoplasm of breast (principal)

== ENCOUNTER 2021-03-06 06:39 | Observation (INO) ==
--- NOTE | 2021-02-08 09:58 | PAT Medication Instructions ---
Medication Instructions Date of Service February 08, 2021 Home Medications aspirin 81 mg PO QAM atorvastatin [Lipitor] 40 mg PO HS clopidogrel [Plavix] 75 mg PO QAM alendronate 70 mg PO WK calcium 600 mg PO BID cholecalciferol (vitamin D3) [Vitamin D3] 25 mcg PO QAM Continue as directed alendronate 70 mg PO WK ASK your prescriber and surgeon clopidogrel [Plavix] 75 mg PO QAM (in order for spinal anesthesia, clopidogrel/Plavix needs to be stopped 7 days before surgery. Please check if okay with doctor that prescribes this to you) DO NOT take the morning of surgery calcium 600 mg PO BID cholecalciferol (vitamin D3) [Vitamin D3] 25 mcg PO QAM Take morning of surgery With a small sip of water, OTHERWISE NOTHING TO EAT OR DRINK AFTER MIDNIGHT: aspirin 81 mg PO QAM (unless told otherwise by surgeon) Take evening before surgery atorvastatin [Lipitor] 40 mg PO HS calcium 600 mg PO BID Other Notes If you have any questions please call us at [phone] or [phone] or [phone] or [phone]
--- NOTE | 2021-02-11 11:08 | Anesthesiology Consultation ---
Date of Service February 11, 2021 Assessment & Plan (1) Encounter for pre-operative examination: COVID Status: As of 02/11 assessment, patient denies travel to endemic area, known exposure/sick contacts, or symptoms of COVID19. Patient instructed that they and their household members must follow strict social distancing guidelines, wear a mask in public and avoid travel/events/gatherings for 14 days prior to surgery. Preoperative COVID19 testing to be completed prior to surgery per surgeon's arrangements (pt aware). Patient made aware to self-isolate as much as possible between COVID testing and surgery. Patient is fully vaccinated. Anxiety re: SAB: Patient had SAB for her hysterectomy in the past, and she recalls waking up during the procedure. This was extremely disturbing to her, and she fears waking up during her knee replacement. Reassurance provided, discussed possibility of GA. Pt to discuss with MARCY AM DOS. PONV: pt has had severe PONV with every surgery (including hyster with SAB) ex cept for 2013 TKA. Record reviewed. Patient given general anesthesia, given decadron/zofran intraop, no scopolamine patch -- Niño #3, ETT 7.0, Grade View 4 with cricoid pressure. Atx intubation...femoral block done. Per anesthesia progress note, "Anesthetic Complications: no major complications apparent. Pt still c/o 7/10 pain, however, she is sleeping and dropping her SpO2 to 94%, indicating her pain medications have been maximized at this time. Will discharge to room." Plavix: Patient on Plavix for h/o CVA. She was instructed to hold this for 5 day s by Naveed Shanks; she then contacted her prescriber to make sure this is OK, and was told 5 days is acceptable. However, will need to beheld for7 days for option of SAB. She will reach back out to her prescriber to ask about holding for 7 days. Chart Review Chart Review: Acceptable Risk for Surgery and Patient seen in Pre Admission T eliseo Teaching & Discussion Instructed NPO after midnight before surgery, except medications with 15 cc of water. Medication instructions provided according to the PAT guidelines. History Surgery Operation Date: 03/06/21 09:35 Proposed Procedures p Left Total Knee Arthroplasty - Jonathan Sanders MD Height/Weight Height: 5 ft 5 in Weight: 64 kg Allergies Allergy/AdvReac Type Severity Reaction Status Date / Time shrimp AdvReac Intermediate stomach Verified 02/07/21 11:27 cramps tramadol AdvReac Intermediate STOMACH Verified 02/07/21 11:27 SICKNESS cat gut suture Allergy Intermediate red and Uncoded 02/07/21 11:27 painful Medications Home Medications Medication Instructions Recorded Confirmed Last Taken aspirin 81 mg PO QAM 04/19/20 02/07/21 04/19/20 atorvastatin [Lipitor] 40 mg PO HS 04/19/20 02/07/21 04/18/20 clopidogrel [Plavix] 75 mg PO QAM 04/19/20 02/07/21 04/19/20 alendronate 70 mg PO WK 02/07/21 02/07/21 Unknown calcium 600 mg PO BID 02/07/21 02/07/21 Unknown cholecalciferol (vitamin D3) 25 mcg PO QAM 02/07/21 02/07/21 Unknown [Vitamin D3] Past Medical History Medical History (Updated 02/11/21 @ 11:08 by Clyde Coles) Hx of cancer of endometrium SURGERY WITH RADIATION Hx of migraines Hx of ovarian cyst NO SURGERY Hyperlipidemia Osteoarthritis Osteopenia Stroke 2 EPISODES IN 2017 (NO CURRENT PROBLEMS FROM EVENTS) CONTINUES ON PLAVIX. Exercise / Class Metabolic Activity II 4-5 Yardwork/Stairs/Walk up hill Past Family History Family History Other No family history of adverse response to anesthesia Past Surgical History Surgical History (Updated 02/11/21 @ 10:57 by Clyde Coles) H/O total hysterectomy H/O wisdom tooth extraction History of cholecystectomy History of colonoscopy History of dilatation and curettage History of esophagogastroduodenoscopy (EGD) History of gynecologic surgery OVARIAN WEDGE RESECTION SURGERY ON FALLOPIAN TUBE History of total knee replacement RT Hx of knee surgery RT PATELLA REPAIR Nausea and vomiting after administration of anesthetic agent Past Anesthesia History No Family Hx of Anesthesia Complications H/O AWARENESS DURING HYSTERECTOMY (WAS DONE WITH SPINAL BLOCK) -- PT VERY FEARFUL OF THIS HAPPENING AGAIN. H/O SEVERE PONV EXCEPT FOR 2012 TKA. History of PONV History of PONV (SEVERE, EVEN WITH SPINAL FOR HYSTER) and Hx of Motion Sickness Social History Smoking Status: Never smoker Do You Dip or Chew Tobacco: No Hx Alcohol Use: No Hx Substance Use: No Review of Systems Pt denies any recent chest pain, shortness of breath, palpitations, cough, fever, URI, or uncontrolled acid reflux. +seasonal allergies Physical Exam Vital Signs BP: 148/73 (this is high for her, usually 120s systolic) P: 77bpm SPO2: 98% RA T: 98.4 F R: 16 ENMT Mouth: no dental restorations, no chipped teeth and no loose teeth Thyromental Distance: < 3.5 Finger Breadths Mallampati Class: IV Neck normal visual inspection; neck extension not limited Respiratory normal respiratory effort, lungs clear to auscultation Cardiovascular RRR, no murmur, no edema Vessels: no carotid bruit Testing Laboratory Results 02/11/21 11:14 02/11/21 11:14 PT 10.2 Seconds (9.0-12.0) 02/11/21 11:14 INR 1.0 (0.9-1.1) 02/11/21 11:14 APTT 26.1 Seconds (21.0-31.0) 02/11/21 11:14 Urine Color Yellow 02/11/21 11:14 Urine Appearance Clear (Clear) 02/11/21 11:14 Urine pH 5.5 (4.5-7.5) 02/11/21 11:14 Ur Specific [place] 1.015 (1.000-1.030) 02/11/21 11:14 Urine Protein Negative (Negative) 02/11/21 11:14 Urine Glucose (UA) Negative (Negative) 02/11/21 11:14 Urine Ketones Negative (Negative) 02/11/21 11:14 Urine Nitrite Negative (Negative) 02/11/21 11:14 Ur Leukocyte Esterase Negative (Negative) 02/11/21 11:14 Blood Type O Positive 02/11/21 11:14 Antibody Screen NEGATIVE 02/11/21 11:14 Electrocardiogram Date: 02/11/21 Findings: + NSR @ (75bpm) No significant change from 04/2017. Chest X-Ray Date: 05/10/20 FINDINGS: An AP, portable, upright chest radiograph is compared to study dated 08/12/2013 and correlated with chest CT dated 04/19/2020. The cardiomediastinal silhouette is unremarkable noting atherosclerotic calcification of the thoracic aorta. The lungs and pleural spaces are clear. No pneumothorax is seen. The skeletal structures are osteopenic. There is a distracted and overriding fracture through the midshaft of the right clavicle. There are fractures of the right anterior 2nd through 6th ribs. The remainder of the bony thorax is grossly intact. Cholecystotomy clips are noted in the right upper quadrant. IMPRESSION: 1. The lungs are clear. 2. Right clavicular and right-sided rib fractures as above. *Clavicle fx has since healed and pt has undergone extensive physical therapy, no surgical intervention.
[2021-02-11 11:58] LABS: Basophils # (auto) 0.04 K/uL (0-0.2); Basophils % (auto) 0.6 %; Eosinophils # (auto) 0.14 K/uL (0-0.5); Hemoglobin 13.8 g/dL (12.0-16.0); Immature Granulocytes # (auto) 0.01 K/uL (0.00-0.02); Immature Granulocytes % (auto) 0.1 %; Lymphocytes # (auto) 1.76 K/uL (1.2-3.4); Lymphocytes % (auto) 25.5 %; Mean Corpuscular Hemoglobin 29.1 pg (25-34); Mean Corpuscular Hgb Conc 32.9 g/dL (32-36); Mean Corpuscular Volume 88.6 fL (80-100); Mean Platelet Volume 11.5 fL (7.4-10.4); Monocytes # (auto) 0.34 K/uL (0.11-0.59); Monocytes % (auto) 4.9 %; Neutrophils # (auto) 4.61 K/uL (1.4-6.5); Neutrophils % (auto) 66.9 %; Platelet Count 322 K/uL (130-400); RDW Standard Deviation 45.4 fL (36.4-46.3); Red Blood Count 4.74 M/uL (4.2-5.4)
[2021-02-11 12:05] LABS: Appearance Urine Clear (Clear); Bilirubin Urine Negative (Negative); Blood Urine Negative (Negative); Color Urine Yellow; Glucose Urine UA Negative (Negative); Ketones Urine Negative (Negative); Leukocyte Esterase Urine Negative (Negative); Nitrite Urine Negative (Negative); Protein Urine Negative (Negative); Specific Gravity Urine 1.015 (1.000-1.030); Urobilinogen Urine Negative (Negative); pH Urine 5.5 (4.5-7.5)
[2021-02-11 12:15] LABS: Partial Thromboplastin Time 26.1 Seconds (21.0-31.0); Prothrombin Time 10.2 Seconds (9.0-12.0)
[2021-02-11 12:51] LABS: BUN Creatinine Ratio 24.6 (10-20); Calcium 9.5 mg/dl (8.5-10.1); Creatinine Clr Calc Pharmacy 89.3 ml/min; Est GFR (African American) 110.5; Est GFR (Non-African American) 95.3; Potassium 4.1 mmol/L (3.5-5.1)
--- NOTE | 2021-02-12 05:55 | Electrocardiogram Report ---
Test Reason : Blood Pressure : / mmHG Vent. Rate : 075 BPM Atrial Rate : 075 BPM P-R Int : 152 ms QRS Dur : 078 ms QT Int : 402 ms P-R-T Axes : 071 079 071 degrees QTc Int : 448 ms Normal sinus rhythm Normal ECG When compared with ECG of 19-APR-2017 11:37, No significant change was found Confirmed by Souleymane Frankel ([id number]) on 02/12/2021 5:55:07 AM Referred By: Jonathan Sanders Confirmed By:Souleymane Frankel
--- NOTE | 2021-02-19 16:12 | History & Physical Report ---
Date of Service February 19, 2021 Assessment & Plan (1) Left knee DJD: Postoperative prescriptions for Percocet and Coumadin will be provided at discharge from the hospital. Anticipate discharge to home with home health services. She will be sent to [facility] today for preoperative lab work, EKG, and chest x-ray. The patient has an appointment to see her PCP, Dr. Mcmullen. PDMP was checked and there are no concerning findings. She is aware of the COVID-19 risks associated with surgery. She is currently asymptomatic of any COVID-19 symptoms. Preoperative COVID nasal swab has been ordered. Postop followup for therapy has been made for 03/21. She may see me the same day for staple removal. Call with any other concerns. We will need direction from her PCP about stopping her Plavix prior to surgery. History of Present Illness Chief Complaint: Left knee pain Primary Care Provider: Sharon Conroy MD This 75-year-old female presents for a longstanding history of left knee pain. She is scheduled to undergo a left knee total knee arthroplasty on 03/06/2021. Symptoms have been ongoing for at least 2 years. It has become worse with time. Pain is now affecting her ADLs. It is worse with weightbearing and is affecting her gait. She denies any numbness or tingling. No catching or locking. She has tried activity modification, oral anti-inflammatories, and oral pain medication without improvement. She has a history of previous right total knee arthroplasty and has done well with that. She elects to proceed with the same on the left. Preoperative imaging has been obtained. Allergies Allergy/AdvReac Type Severity Reaction Status Date / Time shrimp AdvReac Intermediate stomach Verified 02/07/21 11:27 cramps tramadol AdvReac Intermediate STOMACH Verified 02/07/21 11:27 SICKNESS cat gut suture Allergy Intermediate red and Uncoded 02/07/21 11:27 painful Home Medications Medication Instructions Recorded Confirmed Type aspirin 81 mg PO QAM 04/19/20 02/07/21 History atorvastatin [Lipitor] 40 mg PO HS 04/19/20 02/07/21 History clopidogrel [Plavix] 75 mg PO QAM 04/19/20 02/07/21 History alendronate 70 mg PO WK 02/07/21 02/07/21 History calcium 600 mg PO BID 02/07/21 02/07/21 History cholecalciferol (vitamin D3) 25 mcg PO QAM 02/07/21 02/07/21 History [Vitamin D3] Past Med/Surg History Medical History Hx of cancer of endometrium SURGERY WITH RADIATION Hx of migraines Hx of ovarian cyst NO SURGERY Hyperlipidemia Osteoarthritis Osteopenia Stroke 2 EPISODES IN 2017 (NO CURRENT PROBLEMS FROM EVENTS) CONTINUES ON PLAVIX. Surgical History H/O total hysterectomy H/O wisdom tooth extraction History of cholecystectomy History of colonoscopy History of dilatation and curettage History of esophagogastroduodenoscopy (EGD) History of gynecologic surgery OVARIAN WEDGE RESECTION SURGERY ON FALLOPIAN TUBE History of total knee replacement RT Hx of knee surgery RT PATELLA REPAIR Nausea and vomiting after administration of anesthetic agent Family History Other No family history of adverse response to anesthesia Social History (Updated 02/19/21 @ 16:10 by Judd Shanks PA-C) Smoking Status: Never smoker Second Hand Exposure: Yes ( A CHILD); Do You Dip or Chew Tobacco: No; Hx Alcohol Use: No Hx Substance Use: No Preferred Language: Chadian Personal Vehicle Advisor Required: No Beliefs That Will Affect Care: None marital status: Single Current Living Situation: Alone Feels Safe at Home: Yes Safety Concerns: Feels Safe At This Time Assistive Devices: Contacts and Glasses Review of Systems Review of Systems: All systems reviewed & are unremarkable except as noted in HPI & below A total of 10 systems were reviewed. Physical Exam Physical Exam: Vitals: Height 165 cm, weight 64 kg, BMI 23.5, BP 122/80, pulse 77, O2 sat 99% on room air, temperature 36.5. General: Well-developed, well-nourished, elderly white female in no acute distress. Sitting in a chair. Alert and oriented. Skin: Warm and dry with go od turgor. No rashes or lesions. No ecchymosis or erythema. No intraarticular effusion. HEENT: Normocephalic, atraumatic. Eyes: PERRLA, EOMI. Nares patent bilaterally without turbinate enlargement. Oropharynx exam deferred due to COVID precautions. Heart: RRR, no MGR. Lungs: Clear to auscultation bilaterally, no crackles, rhonchi or wheezing, good air movement. Abdomen: Bowel sounds present x4, soft, nontender. No organomegaly. No masses. Musculoskeletal: Left knee evaluation reveals obvious arthritic changes. She has a varus deformity and lacks about 5 degrees of terminal extension. Flexion to around 100 degrees. No palpable crepitus today with motion. She has medial and lateral joint line discomfort with palpation. Stable collateral ligaments. No laxity. No defect in the patellar tendon or quadriceps tendon. Ambulates with an antalgic gait. She has used a cane in the past, but none today. Neurologic: Gross sensation is intact across the left leg by soft touch. Peripheral pulses are 2+. Results & Data Results & Data ([facility]) Diagnostic Findings Radiographic imaging obtained today was reviewed by me and read by radiology. Four views of the left knee show no acute fracture. She has tricompartmental osteoarthritis, more severe within the medial and patellofemoral compartments. No evidence of loose bodies.
--- NOTE | 2021-03-05 12:41 | History & Physical Bridge Note ---
Date of Service March 05, 2021 History & Physical Bridge Note I have examined the patient, reviewed the History & Physical and in the interval since the performance of the History & Physical I have noted the following changes of clinical significance:consent obtained/site verified/covid screen negative. no changes noted
[~2021-03-06 06:39] MED LIST changes: -ASPI-320 PO; +BUPIVACAINE 0.5 % 5 MG/1 ML PF 10ML VIAL ONE; -LPT40 PO; +LR 500ML BOLUS, THEN 15ML/HR IV SCH; +LR 60ML/HR IV SCH; -PLV75 PO; +ROPIVACAINE 0.5% 5 MG/ML 30 ML VIAL ONE; +ROPIVACAINE 0.5% HCL/PF 150 MG, BUPIVACAINE 0.75% MPF 20 ML, EPINEPHrine 0.15 MG, Ketor... INFIL SCH; +TRANEXAMIC ACID 1,000 MG **IV Intra-op IV SCH; +TRANEXAMIC ACID 1,000 MG x 1 **For Topical Use TOP SCH; +ceFAZolin 2000MG 2,000 MG/15 ML SYR IV SCH
[2021-03-06] MEDS ORDERED: MIDAZOLAM HCL 1 MG/ML 2ML VIAL ONE ×2 (07:48→09:13)
[2021-03-06] MEDS ORDERED: LIDOCAINE HCL 2% 2 ML VIAL/AMP(20MG/ML) INFIL ONE (07:58)
[2021-03-06] MEDS ORDERED: PROPOFOL IV EMULSION 10 MG/ML 20 ML VIAL IV ONE (07:58)
[2021-03-06] MEDS ORDERED: ONDANSETRON INJ 2 MG/ML 2 ML VIAL IV PRN ×2 (08:15→11:14)
[2021-03-06] MEDS ORDERED: KETOROLAC 30 MG/ML VIAL IV PRN (08:15)
[2021-03-06] MEDS ORDERED: PROMETHAZINE HCL 6.25 MG in SODIUM CHLORIDE 0.9% 50 ML IV PRN (08:15)
[2021-03-06] MEDS ORDERED: ePHEDrine sulfate 50 MG/ML AMP IV PRN (08:15)
[2021-03-06] MEDS ORDERED: ATROPINE SULFATE 0.1 MG/ML 10ML SYR IV PRN (08:15)
[2021-03-06] MEDS ORDERED: HYDROmorphone INJ 1 MG/ML SYRINGE IV PRN (08:15)
[2021-03-06] MEDS ORDERED: ORTHO JOINT ANESTHETIC ONE (08:30)
--- NOTE | 2021-03-06 10:12 | Post Operative Brief Note ---
Immediate Post Op Note v1 Date of Surgery March 06, 2021 Pre & Post Diagnosis Operation Date: 03/06/21 08:50 Pre-Op Diagnosis: Left Knee Degenerative Joint Disease Post-Op Diagnosis: Left Knee Degenerative Joint Disease I identified the patient and participated in the time-out.: Yes Procedure Operation Date: 03/06/21 08:50 Actual Procedures p Left Total Knee Arthroplasty, Cemented(Left) - Jonathan Sanders MD Surgeon Jonathan Sanders MD [employer] [facility] Est[facility] Blood Loss 20 Findings Consistent with Post-Op Diagnosis
--- NOTE | 2021-03-06 10:22 | Operative Report ---
Post Operative Report Pre & Post Diagnosis Operation Date: 03/06/21 08:50 Pre-Op Diagnosis: Left Knee Degenerative Joint Disease Post-Op Diagnosis: Left Knee Degenerative Joint Disease I identified the patient and participated in the time-out.: Yes Procedure Operation Date: 03/06/21 08:50 Actual Procedures p Left Total Knee Arthroplasty, Cemented(Left) - Jonathan Sanders MD Surgeon SEBAS Sanders MD Rodding Machine Tender jessica SALGADO Estimated Blood Loss 20 Findings Consistent with Post-Op Diagnosis Specimens see operative report Drains none Complications none Disposition Accompanied Patient To Recovery: Yes Disposition: Recovery Room Indications This 75 year old female presented to the office with complaints of persisting left knee pain. She had tried conservative care measures without improvement. She has a history of previous right total knee arthroplasty and has done well with it. She elects to proceed with the same on the left. Preoperative imaging was obtained. Description of Procedure Patient was administered a regional block and spinal anesthesia, and then taken to the operating room where she was given Sedation. She was prepped and draped in the usual sterile fashion. Please see Dr. Sanders's operative report for specifics of the procedure. I was present for the entire case from initial patient positioning through final wound closure. Assistance was provided in tissue retraction, hemostasis, trial implant placement, final implant placement, and final wound closure. Patient was taken to the recovery room in satisfactory condition. I attest to the content of the Intraoperative Record and any orders documented therein. Any exceptions are noted below.
--- NOTE | 2021-03-06 10:50 | XRay Report ---
TWO VIEWS LEFT KNEE CLINICAL HISTORY: Postoperative examination. FINDINGS: AP and crosstable lateral portable views of the left knee are obtained. A left knee arthrop lasty is in near anatomic alignment. There has been undersurface remodeling of the patella. No acute fracture is seen. There are expected postoperative changes around the knee including skin clips, soft tissue edema, and subcutaneous gas. IMPRESSION: Expected postoperative changes status post left knee arthroplasty. No acute fracture is s een. ACT 112: Negative or not required by law. Electronically signed by: Dakota Alejandre M.D. 03/06/2021 10:49 AM
--- NOTE | 2021-03-06 10:58 | Anesthesiology Progress Note ---
Date of Service March 06, 2021 Anesthesia Post Procedure Vital Signs Vital Signs: Temp Pulse Pulse Resp BP Pulse Ox 03/06/21 10:50 71 18 124/63 97 03/06/21 10:40 74 16 128/58 L 97 03/06/21 10:30 76 18 121/59 L 97 03/06/21 10:20 36.4 C L 82 16 120/53 L 99 03/06/21 07:11 36.5 C 83 20 162/82 H 99 Transfer of Care Handoff Completed per policy Notes Mental Status: alert / awake / arousable Patient Amnestic to Procedure: Yes Nausea / Vomiting: adequately controlled Pain: adequately controlled Airway Patency, RR, SpO2: stable & adequate BP & HR: stable & adequate Hydration State: stable & adequate Neuraxial Anesthesia: was administered and sensory block is resolving Anesthetic Complications: no major complications apparent
[2021-03-06] MEDS ORDERED: NALOXONE HCL 0.4 MG/1 ML VIAL/CARP IV PRN (11:14)
[2021-03-06] MEDS ORDERED: ALUMINUM/MAGNESIUM SUSP 30 ML UDC PO PRN (11:14)
[2021-03-06] MEDS ORDERED: SODIUM CHLORIDE 0.9% 1000ML 1,000 ML IV SCH (11:14)
[2021-03-06] MEDS ORDERED: oxyCODONE HCL IR 5 MG TAB (IMMEDIATE RELEASE) PO PRN (11:14)
[2021-03-06] MEDS ORDERED: METOCLOPRAMIDE HCL INJ 5 MG/ML 2 ML VIAL IV PRN (11:14)
[2021-03-06] MEDS ORDERED: MAGNESIUM HYDROXIDE SUSP 30 ML UDC PO PRN (11:14)
[2021-03-06] MEDS ORDERED: HYDROmorphone INJ 0.5 MG/0.5 ML SYR IV PRN (11:14)
[2021-03-06] MEDS ORDERED: bisacodyL 10 MG SUPP PR PRN (11:14)
[2021-03-06] MEDS ORDERED: diphenhydrAMINE 50 MG/ML VIAL IV PRN (11:14)
--- NOTE | 2021-03-06 11:38 | Operative Report (OR) ---
DATE OF OPERATION: 03/06/2021 SURGEON: Jonathan Sanders MD. BELT DRESSER: Judd Shanks PA-C. No resident or fellow available. PREOPERATIVE DIAGNOSIS: Osteoarthritis with varus deformity, left knee. POSTOPERATIVE DIAGNOSIS: Osteoarthritis with varus deformity, left knee. OPERATION PERFORMED: Cemented left total knee replacement. SUMMARY OF IMPLANTS: Size 3 left femur posterior cruciate substituting, size 3 mobile bearing tray, size 3 x 10 PCL stabilizing insert, 2 bags of Palacos G cement and 41 oval-domed 3-peg patella. ESTIMATED BLOOD LOSS: 20 mL. CRYSTALLOID: Per anesthesia. BONE PATHOLOGY: Pending. DVT prophylaxis per protocol. PERIOPERATIVE SITUATION: Medically cleared female with intractable knee pain who has a significant varus and pain in her knee. She has had failed conservative management for over a decade. At this point in time, wants to proceed with surgical treatment. Had the same thing done on her right side. She understands the risks and consequences. No guarantees. DESCRIPTION OF PROCEDURE: The patient was appropriately identified, site verified, consent verified. Antibiotics confirmed as being given. Left lower extremity was prepped and draped in usual routine fashion. Anterior approach to the knee was then carried out. Parapatellar arthrotomy carried out. Synovectomy completed, osteophytes resected. There was grade 4 disease on the entire mid surface of the patella, on the posterior half of the tibia medially and the femur medially and then along the intercondylar notch and the most lateral aspect of the medial compartment. The lateral compartment was relatively healthy. Once all the exposure was obtained, menisci resected. Cruciates resected. The tibia was subluxated and the distal femur resected 12 mm, the proximal tibia resected 4 mm, the extension gap was excellent. The femur was sized to a 3, appropriate cutting block applied. Anterior, posterior condylar and chamfer cuts made. Flexion gap was checked. It was excellent. A box cut was then made and a size 3 fit well. The tibia was broached and reamed to a size 3 and with a 10 spacer, everything was stable including mid range flexion. The patella was then resected leaving 15 mm and a 41 oval-domed 3-peg patella fit well. The patella tracked well. All trial implants were then removed. The wound was irrigated with Betadine Pulsavac and TXA for 2-1/2 minutes, then irrigated one final time and then the permanent cemented into position, tibia, femur and patella in that order. After 12 minutes, the tourniquet deflated. Minor bleeding points were controlled with electrocautery. After 14 minutes, the knee flexed. Minor cement removal was required. Wound was then irrigated with Betadine and then the permanent liner seated. The knee reduced and closed at 30-40 degrees of flexion with #2 Vicryl, 2-0 Vicryl and stainless steel clips. Appropriate dressing applied. The patient was transferred to recovery room in satisfactory condition having tolerated the procedure well. I attest to the content of the Intraoperative Record and any orders documented therein. Any exception s are noted below.
--- NOTE | 2021-03-06 11:38 | Progress Notes ---
DATE: 03/06/2021 SUBJECTIVE: Postop check, status post left total knee replacement. The patient is doing well. Denies chest pain, shortness of breath, fever, chills, nausea, vomiting or headache. OBJECTIVE: Vital signs are stable. She is afebrile. Neurovascular check limited by spinal. Wound dressing clean, dry and intact. Postop x-rays look excellent. ASSESSMENT: Doing well status post left total knee replacement. Continue with care pathway. Discharge to home tomorrow.
--- NOTE | 2021-03-06 11:43 | Discharge Summary (DS) ---
Potential date of discharge 03/07/2021. Status post left total knee replacement. HISTORY OF PRESENT ILLNESS: A 75-year-old female with longstanding history of pain in the left knee, underwent a left total knee replacement. Hospital course has been uneventful. Postop x-rays look excellent. ALLERGIES: INCLUDE SHRIMP, AND CATGUT SUTURE. HOME MEDICATIONS: Include aspirin, atorvastatin, Plavix, alendronate, calcium, cholecalciferol. PAST MEDICAL HISTORY: Remarkable for history of endometrial cancer surgery and radiation, history of migraines, history of ovarian cyst, hyperlipidemia, osteoarthritis, osteopenia, stroke. PAST SURGICAL HISTORY: Includes hysterectomy, tooth extraction, cholecystectomy, colonoscopies, D and Cs, EGDs, gynecologic surgery, knee replacement on the right. FAMILY HISTORY: Reveals no issues with anesthesia. SOCIAL HISTORY: Reveals that she does not smoke. Social alcohol only. Lives alone. Feels safe at home. REVIEW OF SYSTEMS: Reveals no chest pain, shortness of breath, fever, chills, nausea, vomiting, or headache. X-rays postop look excellent. ASSESSMENT: Doing well status post left total knee replacement. Continue with care pathway. Home tomorrow if she does well overnight. RIRID
[2021-03-06] MEDS ORDERED: VANCOMYCIN HCL 1,000 MG in SODIUM CHLORIDE 0.9% 250 ML IV SCH (12:00)
[2021-03-06] MEDS: KETOROLAC TROMETHAMINE 15 MG/ML VIAL IV SCH ×3 (12:19→22:38)
[2021-03-06] MEDS: ACETAMINOPHEN 500 MG TAB PO SCH ×2 (13:51→21:07)
[2021-03-06] MEDS ORDERED: ORTHO WARFARIN NOMOGRAM SCH (14:00)
[2021-03-06] MEDS: ASCORBIC ACID 500 MG TAB PO SCH (16:05)
[2021-03-06] MEDS: FERROUS GLUCONATE 324 MG TAB PO SCH (16:05)
[2021-03-06] MEDS: ceFAZolin 2000MG 2,000 MG/15 ML SYR IV SCH (16:05)
[2021-03-06] MEDS ORDERED: SENNA 8.6 MG TAB PO SCH (21:00)
[2021-03-06] MEDS ORDERED: ATORVASTATIN 40 MG TAB PO SCH (21:00)
[2021-03-06] MEDS: DOCUSATE SODIUM 100 MG CAP PO SCH (21:07)
[2021-03-07] MEDS: ceFAZolin 2000MG 2,000 MG/15 ML SYR IV SCH (00:47)
[2021-03-07] MEDS: ACETAMINOPHEN 500 MG TAB PO SCH (05:42)
[2021-03-07] MEDS: KETOROLAC TROMETHAMINE 15 MG/ML VIAL IV SCH (05:43)
[2021-03-07 06:21] LABS: Hematocrit (blood only) 37.1 % (37-47); Hemoglobin 12.3 g/dL (12.0-16.0); Mean Corpuscular Hgb Conc 33.2 g/dL (32-36); Mean Corpuscular Volume 87.5 fL (80-100); Mean Platelet Volume 11.6 fL (7.4-10.4); Platelet Count 315 K/uL (130-400); RDW Coefficient of Variation 13.5 % (11.5-14.5); RDW Standard Deviation 42.7 fL (36.4-46.3); Red Blood Count 4.24 M/uL (4.2-5.4); White Blood Count 14.19 K/uL (4.8-10.8)
[2021-03-07 06:49] LABS: Prothrombin Time 10.2 Seconds (9.0-12.0)
[2021-03-07 07:28] LABS: BUN Creatinine Ratio 25.9 (10-20); Calcium 8.1 mg/dl (8.5-10.1); Creatinine Clr Calc Pharmacy 76.7 ml/min; Est GFR (African American) 105.1; Est GFR (Non-African American) 90.7; Potassium 3.3 mmol/L (3.5-5.1)
[2021-03-07] MEDS: FERROUS GLUCONATE 324 MG TAB PO SCH (07:42)
[2021-03-07] MEDS: ASCORBIC ACID 500 MG TAB PO SCH (07:42)
[2021-03-07] MEDS: DOCUSATE SODIUM 100 MG CAP PO SCH (07:43)
[2021-03-07] MEDS ORDERED: dexAMETHasone 10 MG in SYRINGE 0 ML IV SCH (08:00)
[2021-03-07] MEDS ORDERED: ASPIRIN 81 MG ECTAB PO SCH (09:00)
[2021-03-07] MEDS ORDERED: ASPIRIN 325 MG ECTAB PO SCH (09:00)
[2021-03-07] MEDS ORDERED: MULTIVITAMIN TAB PO SCH (09:00)
[2021-03-07] MEDS ORDERED: CLOPIDOGREL BISULFATE 75 MG TAB PO SCH (09:00)
--- NOTE | 2021-03-07 10:15 | Orthopedic Progress Note ---
Date of Service March 07, 2021 Assessment & Plan (1) S/P total knee replacement using cement: Patient was educated regarding today's findings. Conservative care measures were discussed. Dressings were changed by me. Written discharge instructions were provided. She will use Plavix 75 mg daily and aspirin 325 mg daily for DVT prophylaxis. Dressings will remain in place until Thursday, and then may be changed as needed for soiling. Follow-up in the office in 2 weeks as scheduled for staple removal. Discharge to home today after PT/OT. Prescriptions for Percocet and Zofran were sent to her pharmacy. Admission and Anticipated Discharge Date Admission Date: March 06, 2021 Subjective Patient is seen in her room this morning. She denies any complaints. No nausea, vomiting, headache, chest pain, or shortness of breath. She states her knee feels well. She has had no vomiting or nausea during this stay, and is pleased. She has been out of bed. She feels ready for discharge to home. No other complaints. Review of Systems Review of Systems: Unchanged from yesterday. Physical Exam Physical Exam: General: Well-developed, well-nourished, elderly white female, in no acute distress. Sitting in her bed. Alert and oriented. Conversive. Skin: Warm and dry with good turgor. Postoperative dressings are in place on the left knee. Upon removal, there is expected postoperative edema. No ecchymosis. Scant dried drainage on her dressings. No active bleeding. [place] are intact. Wound edges are well approximated. Musculoskeletal: Left knee evaluation reveals full terminal extension. She has intact straight leg raise. Intact motor function to her ankle and toes. Flexion to around 40 degrees. Neurologic: Gross sensation is intact across the left leg by soft touch. Pe ripheral pulses are 2+. Results & Data ([facility]) Vital Signs (Past 12 Hours) Vital Signs Temp Pulse Pulse Resp BP Pulse Ox 03/07/21 10:02 36.6 C 68 62 16 132/76 99 03/07/21 08:31 36.6 C 62 16 162/76 H 99 03/07/21 04:07 36.5 C 69 16 153/68 H 98 03/06/21 23:00 36.8 C 63 16 119/67 97 Laboratory Results WBCs this morning are 14.2. Hemoglobin 12.3, hematocrit 37.1. INR is 1.0 with PT of 10.2. PRP shows potassium of 3.3, chloride of 109. BUN 15 with creatinine of 0.57. Glucose this morning is 109.
--- NOTE | 2021-03-07 11:15 | Discharge Summary (DS) ---
PATIENT OF: Jonathan Sanders MD. CONDITION ON DISCHARGE: Stable. PROCEDURE: Left knee total knee arthroplasty using cement. CONSULTANTS: None. HOSPITAL COURSE: This 75-year-old female was admitted on 03/06/2021 for left total knee arthroplasty. She underwent uneventful total knee arthroplasty and did well postoperatively. She did well overnight and had no issues. She denies any nausea or vomiting last evening. She states her pain was well controlled. She was able to ambulate with use of a walker. The patient was reassessed this morning. She is again doing well. She denies any chest pain, shortness of breath, nausea, vomiting, or abdominal pain. Knee pain is controlled with oral medication. Her dressings today were changed by me. She will be discharged to home with outpatient services. She did receive PT and OT today and participated in both. She is eating well. ALLERGIES: SHRIMP, TRAMADOL, WHICH CAUSES GI UPSET, AND CATGUT SUTURE. VITAL SIGNS: Today, BP 132/76, pulse 68, respirations 16, O2 sat 99% on room air, temperature 36.6. DISCHARGE MEDICATIONS: Zofran 4 mg q.8 hours p.r.n., Percocet 2 tablets p.o. q.6 hours p.r.n., continue her alendronate 70 mg weekly, Lipitor 40 mg p.o. at bedtime, calcium 600 mg b.i.d., vitamin D3 25 mcg q.a.m., Plavix 75 mg q.a.m. She will stop her aspirin 81 mg and substitute aspirin 325 mg once daily for DVT prophylaxis. She may also have Tylenol as needed for discomfort. DISCHARGE INSTRUCTIONS: Written discharge instructions were provided. She will take her aspirin daily along with Plavix daily for DVT prophylaxis. Continue with her walker for ambulation. Dressings will remain in place until Thursday and then change as needed for soiling. Follow up in the office in 2 weeks as scheduled for staple removal. Ice and elevate the knee frequently to reduce pain and swelling. Call the office with any other concerns.
== END 2021-03-07 10:58 | disposition home or self-care (01) ==
LOC: 3E 06:39 → ASU 06:39